=== PATIENT | female | born 1935 | race Caucasian/White ===

== ENCOUNTER 2019-07-16 15:03 | Inpatient (IN) ==
[2019-07-16] MEDS ORDERED: DILTIAZEM 25 MG/5 ML VIAL IV ONE (15:35)
[2019-07-16] MEDS ORDERED: DILTIAZEM 125 MG in DEXTROSE 5% IN WATER 100 ML IV SCH (15:45)
--- NOTE | 2019-07-16 16:02 | Emergency Department Note ---
Arrhythmia/Palpitations HPI - General Chief Complaint: Arrhythmia/Palpitations Stated Complaint: irregular heart rate, difficulty breathing Time Seen by Provider: 07/16/19 15:18 Source: patient Mode of arrival: ambulatory Limitations: no limitations - History of Present Illness HPI Narrative: 84-year-old female presents with tachycardia and palpitations. Onset yesterday afternoon. [place] about [place] she became short of breath and felt like she was having palpitations. Since then it has been intermittent but fairly constant all day today. States she is tried pounding on her chest with no relief as well as inhaler which gave her some minimal relief. No cough. No fever chills. No nausea, vomiting, or diarrhea. No chest pain. States she has a tight sensation all over her whole body but no pain. She was sent to the pulmonary clinic today to be evaluated for this and they sent her here to the ER for further evaluation. She arrives in A. fib in the 130s and is taken directly back to the ER room. - Related Data Home Medications Medication Instructions Recorded Confirmed HYDROcodone/APAP 5/325MG 1 tab PO PRN PRN 02/02/16 02/02/16 Ibuprofen [Motrin] 600 mg PO DAILY 02/02/16 02/02/16 Omeprazole [Prilosec] 20 mg PO DAILY 02/02/16 02/02/16 Verapamil [Calan Sr] 250 mg PO DAILY 02/02/16 02/02/16 glipiZIDE [Glucotrol] 10 mg PO DAILY 02/02/16 02/02/16 Prevagen Extra Strenght PO QDAY 01/16/18 01/16/18 glipizide 10 mg tablet 10 mg PO BID 01/16/18 01/16/18 insulin detemir U-100 SUB-Q 01/16/18 01/16/18 losartan 100 mg tablet 100 mg PO QDAY 01/16/18 01/16/18 verapamil ER 360 mg 24 hr 360 mg PO QDAY 01/16/18 01/16/18 capsule,extended release vit B complex-folic acid PO QDAY 01/16/18 01/16/18 Previous Rx's Medication Instructions Recorded diclofenac 1 % topical gel See Rx Instructions .ROUTE 01/18/18 .COMPLEX #100 g Allergies Allergy/AdvReac Type Severity Reaction Status Date / Time propoxyphene Allergy Verified 07/16/19 15:12 [From MohsenTorres] Review of Systems All systems ED: reviewed and negative except as stated. Past Medical History - Past Medical History [facility] Narrative: Medical History (Last Updated 01/16/18 @ 12:11 by Payton Diaz) Back pain (Acute) Osteoarthritis (Acute) Polyarthralgia (Acute) Vaginal prolapse (Chronic) Glaucoma (Chronic) Type 2 diabetes mellitus (Chronic) Essential hypertension (Chronic) Diverticular disease (Chronic) Memory deficit (Chronic) Rheumatoid arthritis (Chronic) Right radial head fracture (Acute) Contusion of right wrist (Acute) Contusion of right hip (Acute) Right knee pain (Acute) History of hysterectomy (Chronic) Past Surgical History (Last Updated 01/16/18 @ 12:11 by Payton Diaz) History of appendectomy (Chronic) History of cholecystectomy (Chronic) History of tonsillectomy and adenoidectomy (Chronic) Medical history: Reports: DM, GERD, glaucoma, hypertension, other Psychiatric history: Reports: anxiety, depression Surgical history ED: Reports: knee replacement, SURENDRA/BSO - Social History smoking status: Former smoker Alcohol use: Reports: None Drug use: Reports: none Physical Exam Limitations: no limitations General appearance: alert Head: atraumatic, normocephalic, normal inspection Eye: Present: normal appearance. Absent: conjunctival injection ENT: Present: mucous membranes moist Chest: Present: symmetric chest wall rise Respiratory: Present: normal lung sounds bilaterally. Absent: respiratory distress, rales/crackles, wheezes, stridor, accessory muscle use Cardiovascular: Present: tachycardia, irregular rhythm (A. fib in the 130s to 170s on arrival) Abdominal: Present: soft, normal bowel sounds. Absent: distention, tenderness, guarding, mass Extremities: Present: pedal edema (1+ bilaterally) Neurological: Present: alert, oriented X3 Psychiatric: Present: normal affect, normal mood Skin: Present: warm, dry, intact, normal color. Absent: rash Course Course Narrative: Patient was given a 10 mg IV bolus of Cardizem and started on a Cardizem drip this now titrated up to 8 and her rate is currently in the low 100s still A. fib. At 1738 I did speak with the hospitalist, Dr. Marcus who agrees to accept this patient. Vital Signs Temperature 97.5 F 07/16/19 15:06 Pulse Rate 133 H 07/16/19 15:06 Respiratory Rate 18 07/16/19 15:06 Pulse Oximetry (%) 96 07/16/19 15:06 Temperature 97.5 F 07/16/19 15:06 Pulse Rate 133 H 07/16/19 15:06 Respiratory Rate 17 07/16/19 17:31 Blood Pressure 142/74 07/16/19 17:31 Pulse Oximetry (%) 98 07/16/19 17:31 Arrhythmia/Palpitations - Lab Data Lab results reviewed: Yes I reviewed the patient's lab results. Result diagrams: 07/16/19 15:49 07/16/19 15:49 Lab Results 07/16/19 07/16/19 07/16/19 Range/Units 15:49 15:49 15:49 WBC 6.6 (4.5-11.0) K/mcL RBC 4.12 (4.00-5.20) M/mcL Hgb 11.8 L (12.0-15.0) g/dL Hct 35.6 L (36.0-48.0) % MCV 86.6 (80.0-100.0) fL MCH 28.7 (26.0-34.0) pg MCHC 33.2 (31.0-36.0) g/dL RDW 14.8 H (11.5-14.5) % Plt Count 182 (140-440) K/mcL MPV 7.8 (7.4-10.4) fL Gran % 63.5 (38.0-78.0) % Lymph % (Auto) 26.5 (15.5-49.0) % [place] % (Auto) 7.6 (1.0-12.0) % Eos % (Auto) 2.0 (0.0-7.0) % Baso % (Auto) 0.4 (0.0-2.0) % Gran # 4.2 (1.8-8.0) K/mcL Lymph # (Auto) 1.8 (1.5-4.8) K/mcL [place] # (Auto) 0.5 (0.1-0.9) K/mcL Eos # (Auto) 0.1 (0.0-0.7) K/mcL Baso # (Auto) 0 (0.0-0.3) K/mcL Sodium 138 (133-145) mmol/L Potassium 4.3 (3.3-5.1) mmol/L Chloride 106 (96-108) mmol/L Carbon Dioxide 16 L (22-30) mmol/L Anion Gap 16.0 (8-16) BUN 30 H (8-23) mg/dl Creatinine 1.4 H (0.6-1.1) mg/dl GFR Calculation 35 Glucose 128 H (70-105) mg/dL Calcium 9.0 (8.6-10.4) mg/dl Total Bilirubin 0.4 (0.0-1.0) mg/dL AST 31 (0-37) U/l ALT 32 (0-40) U/l Alkaline Phosphatase 70 (39-117) U/L CK-MB (CK-2) 1.6 (0-2.9) ng/ml Troponin T < 0.01 (0-0.03) ng/ml Total Protein 7.0 (5.9-8.4) gm/dL Albumin 4.1 (3.2-5.2) gm/dL Globulin 2.9 (2.2-3.7) gm/dL Albumin/Globulin Ratio 1.4 (1.0-2.3) - Radiology Data Radiology results reviewed: Yes I reviewed the patient's radiology results. Disposition Pt seen by APPIAN BPM DEVELOPER/PA only: Yes Clinical Impression: A-fib, Palpitations Disposition: Xfer As Inpt ([facility]) Condition: Fair Referrals: Nasra Lacy ARNP [Primary Care Provider] - Time of Disposition: 17:38
[2019-07-16 16:17] LABS: Basophils # (Auto) 0 K/mcL (0.0-0.3); Basophils % (Auto) 0.4 % (0.0-2.0); Eosinophils # (Auto) 0.1 K/mcL (0.0-0.7); Granulocytes % (Auto) 63.5 % (38.0-78.0); Hematocrit 35.6 % (36.0-48.0); Hemoglobin 11.8 g/dL (12.0-15.0); Lymphocytes # (Auto) 1.8 K/mcL (1.5-4.8); Lymphocytes % (Auto) 26.5 % (15.5-49.0); Mean Cell Volume 86.6 fL (80.0-100.0); Mean Corpuscular HGB Conc 33.2 g/dL (31.0-36.0); Mean Platelet Volume 7.8 fL (7.4-10.4); Monocytes # (Auto) 0.5 K/mcL (0.1-0.9); Monocytes % (Auto) 7.6 % (1.0-12.0); Platelet Count 182 K/mcL (140-440); RBC 4.12 M/mcL (4.00-5.20); Red Cell Distribution Width 14.8 % (11.5-14.5); WBC 6.6 K/mcL (4.5-11.0)
--- NOTE | 2019-07-16 16:19 | XRay Report ---
CLINICAL INFORMATION: palpitations COMPARISON: None. FINDINGS: The heart is borderline enlarged. Mediastinum and pulmonary vasculature are unremarkable. Moderate patchy infiltrates in both medial bases noted. No effusions IMPRESSION: Moderate patchy infiltrate in both medial bases - suspect aspiration Interpreted and Authenticated by: Christopher Parkinson 07/16/19
[2019-07-16 16:55] LABS: ALT/SGPT 32 U/l (0-40); AST/SGOT 31 U/l (0-37); Albumin 4.1 gm/dL (3.2-5.2); Albumin/Globulin Ratio 1.4 (1.0-2.3); Alkaline Phosphatase 70 U/L (39-117); Bilirubin,Total 0.4 mg/dL (0.0-1.0); Blood Urea Nitrogen 30 mg/dl (8-23); Carbon Dioxide 16 mmol/L (22-30); Chloride 106 mmol/L (96-108); Creatine Kinase MB 1.6 ng/ml (0-2.9); Globulin 2.9 gm/dL (2.2-3.7); Glomerular Filtration Rate 35; Glucose 128 mg/dL (70-105)
--- NOTE | 2019-07-16 17:52 | Internal Med History&Physical ---
Medical - H&P: [facility] Patient information: Note initiated : 07/16/19 at 5:48 pm Service Date, if different from initiated Date: [] Patient: Candy Sierra 84 y/o F admitted on for irregular heart rate, difficulty breathing. Chief Complaint: [] Chief complaint: Shortness of breath/chest palpitation History of present illness: Ms. Sierra is a 84 year old F with known history of diabetes/hypertension who presents to the ER with over 24-hour onset of chest palpitations/shortness of breath. Patient lives fairly independently at [place]. She went to the library where she started experiencing pounding sensation along with shortness of breath. She was helped by the reference librarian to her home. She could not get a hold of her kids in the evening and remained at home all night trying to work with the symptoms. This morning she woke up with similar symptoms and subsequently came to the ER for evaluation. She denies associated chest pain but felt like pressure. She denies associated diaphoresis lightheadedness or dizziness. Initial work-up was consistent with A. fib RVR with heart rate around 170. Patient was started on diltiazem with resultant heart rate stabilizing around 110. Chest imaging reveals bilateral basilar pneumonia, pyuria on UA. Subsequently hospitalist service was consulted. At the time of evaluation patient is alert and oriented. She was able to answer most questions. She was able to endorse history as above. Recently was on a vacation with her son at [facility]. She denies exposure to sick contact. She further denies [id number] cough suppressant or NSAIDs. She denies lower extremity pain swelling or prolonged immobilization or history of clotting or bleeding disorder. Review of systems 10 point review of system was performed and is negative except was discussed above Medical - H&P: PMH Medical history: Back pain (Acute) Osteoarthritis (Acute) Polyarthralgia (Acute) Vaginal prolapse (Chronic) Glaucoma (Chronic) Type 2 diabetes mellitus (Chronic) Essential hypertension (Chronic) Diverticular disease (Chronic) Memory deficit (Chronic) Rheumatoid arthritis (Chronic) Right radial head fracture (Acute) Contusion of right wrist (Acute) Contusion of right hip (Acute) Right knee pain (Acute) Surgical History History of appendectomy (Chronic) History of cholecystectomy (Chronic) History of hysterectomy (Chronic) History of tonsillectomy and adenoidectomy (Chronic) Family History Brother Coronary heart disease Social History marital status: occupational status: retired smoking status: Former smoker alcohol intake frequency: does not drink substance use type: does not use Medical - H&P: Meds Home Medications Medication Instructions Recorded Confirmed Type HYDROcodone/APAP 5/325MG 1 tab PO PRN PRN 02/02/16 02/02/16 History Ibuprofen [Motrin] 600 mg PO DAILY 02/02/16 02/02/16 History Omeprazole [Prilosec] 20 mg PO DAILY 02/02/16 02/02/16 History Verapamil [Calan Sr] 250 mg PO DAILY 02/02/16 02/02/16 History glipiZIDE [Glucotrol] 10 mg PO DAILY 02/02/16 02/02/16 History Prevagen Extra Strenght PO QDAY 01/16/18 01/16/18 History glipizide 10 mg tablet 10 mg PO BID 01/16/18 01/16/18 History insulin detemir U-100 SUB-Q 01/16/18 01/16/18 History losartan 100 mg tablet 100 mg PO QDAY 01/16/18 01/16/18 History verapamil ER 360 mg 24 hr 360 mg PO QDAY 01/16/18 01/16/18 History capsule,extended release vit B complex-folic acid PO QDAY 01/16/18 01/16/18 History diclofenac 1 % topical gel See Rx Instructions .ROUTE 01/18/18 01/18/18 Rx .COMPLEX #100 g Aspirin [Adult Low Dose Aspirin EC] 81 mg PO 07/16/19 History B-Complex with Vit C Caplet 1 tab PO DAILY 07/16/19 07/16/19 History Baby Vitamin D3 400 units PO DAILY 07/16/19 07/16/19 History Citracal + D Maximum Caplet 1 tab PO DAILY 07/16/19 07/16/19 History Lantus Solostar 15 units SQ DAILY 07/16/19 07/16/19 History Latanoprost 0.005% Eye Drop 1 gtt OU DAILY 07/16/19 07/16/19 History Omeprazole [PriLOSEC] 20 mg PO ACB 07/16/19 07/16/19 History Timolol 0.5% Ophth Drops 1 gtt OU BID 09/04/19 09/04/19 History amLODIPine [Norvasc] 5 mg PO DAILY 07/16/19 07/16/19 History Allergies Allergy/AdvReac Type Severity Reaction Status Date / Time propoxyphene Allergy Verified 07/16/19 15:12 [From RosalineTorres] Medical - H&P: Exam - Constitutional Vitals: Temp Pulse Resp BP Pulse Ox 97.5 F 133 H 17 142/74 98 07/16/19 15:06 07/16/19 15:06 07/16/19 17:31 07/16/19 17:31 07/16/19 17:31 General appearance: no acute distress Exam: Patient alert and oriented Head normocephalic Oral cavity dry No ear nose discharge Neck lymphadenopathy Eye movement symmetrical S1-S2 irregular rhythm grade 1 ESM Diminished breath sounds bases Abdomen soft nontender pendulous Lower extremity no cyanosis clubbing no joint swelling Skin no suspicious lesion Psych alert cooperative Neuro nonfocal Medical - H&P: Reslt - Labs CBC & Chem 7: 07/16/19 15:49 07/16/19 15:49 Labs: Short CBC 07/16/19 Range/Units 15:49 WBC 6.6 (4.5-11.0) K/mcL Hgb 11.8 L (12.0-15.0) g/dL Hct 35.6 L (36.0-48.0) % Plt Count 182 (140-440) K/mcL BMP 07/16/19 15:49 Sodium 138 Potassium 4.3 Chloride 106 Carbon Dioxide 16 L BUN 30 H Creatinine 1.4 H Glucose 128 H Calcium 9.0 Cardiac Enzymes 07/16/19 07/16/19 Range/Units 15:49 15:49 CK-MB (CK-2) 1.6 (0-2.9) ng/ml Troponin T < 0.01 (0-0.03) ng/ml Liver Function 07/16/19 Range/Units 15:49 Total Bilirubin 0.4 (0.0-1.0) mg/dL AST 31 (0-37) U/l ALT 32 (0-40) U/l Alkaline Phosphatase 70 (39-117) U/L Albumin 4.1 (3.2-5.2) gm/dL Medical - H&P: A/P (1) Atrial fibrillation with RVR Current visit: Yes Status: Acute * A. fib with RVR -new onset with active symptoms. Unclear precipitant. Echocardiogram/diltiazem drip/switch to oral AV daisy blockers. Start full dose anticoagulation. If does not spontaneously convert will attempt cardioversion. Rule out DVT with lower extremity Doppler * Bilateral basilar pneumonia-likely aspiration. Continue Zosyn, cultures. Aspiration precautions/ST eval * Acute cystitis-antibiotic coverage and de-escalate based on cultures * DM type II continue basal prandial insulin * Hypertension continue ARB/verapamil * GERD continue PPI * DNR * Prophylaxis full dose anticoagulation in anticipation of cardioversion Plan * Inpatient telemetry admit * Rate control measures * Echocardiogram * Lower extremity Doppler to rule out DVT * Full dose anticoagulation * Cardioversion if no spontaneous reversion to sinus * Prior medical condition management home meds
[2019-07-16 18:16] LABS: Appearance,Urine CLEAR; Bacteria,Urine FEW /hpf (0); Bilirubin,Urine NEG (NEG); Color,Urine YELLOW; Culture Indicated,Urine YES; Glucose,Urine (UA) NEGATIVE (NEG); Ketones,Urine NEG (NEG); Leukocyte Esterase,Urine 250 /uL (NEG); Mucus,Urine FEW /hpf (0); Nitrate,Urine NEG (NEG); Protein,Urine NEG (NEG); Specific Gravity,Urine 1.011 (1.000-1.035); Urine Blood NEG mg/dL (<0.03); Urine Hyaline Cast 6 /lpf (0-2); Urine RBC 0 /hpf (0-1); Urine Squamous Epithelial Cell 1 /hpf (0-4); Urine Transitional Epi Cells < 1 /hpf (0-2); Urine WBC 40 /hpf (0-4); Urobilinogen,Urine NEG (NEG)
[2019-07-16] MEDS ORDERED: MAGNESIUM SULFATE 2 GM/50 ML BAG IV PRN (19:05)
[2019-07-16] MEDS ORDERED: MAGNESIUM HYDROXIDE 30 ML ORAL.SUSP PO PRN (19:05)
[2019-07-16] MEDS ORDERED: POTASSIUM CHLORIDE 20 MEQ PACKET PO PRN (19:05)
[2019-07-16] MEDS ORDERED: DEXTROSE 50% 50 ML VIAL IV PRN (19:05)
[2019-07-16] MEDS ORDERED: ACETAMINOPHEN 1,000 MG/100 ML BOTTLE IV PRN (19:05)
[2019-07-16] MEDS ORDERED: DEXTROSE 31 GM ORAL.SUSP PO PRN (19:05)
[2019-07-16] MEDS ORDERED: ENOXAPARIN 80 MG/0.8 ML SYRINGE SQ ONE (19:05)
[2019-07-16] MEDS: METOPROLOL TARTRATE 5 MG/5 ML VIAL IV SCH ×3 (19:55→20:05)
[2019-07-16] MEDS: PIPERACILLIN SODIUM/TAZOBACTAM 3.375 GM in DEXTROSE 5% IN WATER 50 ML IV SCH (19:56)
[2019-07-16] MEDS: SENNOSIDES/DOCUSATE SODIUM 1 TAB TABLET PO SCH (21:47)
[2019-07-16] MEDS: DOCUSATE SODIUM 100 MG CAPSULE PO SCH (21:47)
[2019-07-16] MEDS: 0.9 % SODIUM CHLORIDE 10 ML SYRINGE IV SCH (21:52)
[2019-07-16] MEDS: INSULIN LISPRO 1 UNIT/0.01 ML UNIT SQ SCH (21:52)
[2019-07-16] MEDS: ACETAMINOPHEN 325 MG TABLET PO PRN (21:54)
[2019-07-17] MEDS: PIPERACILLIN SODIUM/TAZOBACTAM 3.375 GM in DEXTROSE 5% IN WATER 50 ML IV SCH ×5 (00:06→23:41)
[2019-07-17] MEDS: MELATONIN 3 MG TABLET PO PRN ×2 (00:36→20:36)
--- NOTE | 2019-07-17 02:57 | Ultrasound Report ---
CLINICAL INFORMATION: Bilateral leg pain COMPARISON: None. FINDINGS: The entire deep venous system of both lower extremities, including the common femoral, superficial femoral, popliteal and paired trifurcation calf veins are easily compressible and show normal venous blood flow on color and spectral Doppler. No evidence of thrombus IMPRESSION: Negative exam - no evidence of deep vein thrombosis in either lower extremity. Interpreted and Authenticated by: Christopher Parkinson 07/17/19
[2019-07-17] MEDS: DILTIAZEM 125 MG in DEXTROSE 5% IN WATER 100 ML IV SCH ×2 (03:44→15:27)
[2019-07-17 05:26] LABS: Hematocrit 32.3 % (36.0-48.0); Hemoglobin 10.9 g/dL (12.0-15.0); Mean Cell Volume 86.7 fL (80.0-100.0); Mean Corpuscular HGB Conc 33.9 g/dL (31.0-36.0); Mean Platelet Volume 8.3 fL (7.4-10.4); Platelet Count 141 K/mcL (140-440); RBC 3.73 M/mcL (4.00-5.20); Red Cell Distribution Width 14.8 % (11.5-14.5); WBC 5.3 K/mcL (4.5-11.0)
[2019-07-17 05:42] LABS: ALT/SGPT 26 U/l (0-40); AST/SGOT 21 U/l (0-37); Albumin 3.7 gm/dL (3.2-5.2); Albumin/Globulin Ratio 1.5 (1.0-2.3); Alkaline Phosphatase 62 U/L (39-117); Bilirubin,Direct < 0.2 mg/dL (0.0-0.3); Bilirubin,Total 0.3 mg/dL (0.0-1.0); Blood Urea Nitrogen 31 mg/dl (8-23); Calcium 8.7 mg/dl (8.6-10.4); Carbon Dioxide 19 mmol/L (22-30); Chloride 106 mmol/L (96-108); Globulin 2.5 gm/dL (2.2-3.7); Glomerular Filtration Rate 30; Glucose 128 mg/dL (70-105); Lactate Dehydrogenase 243 U/L (94-250); Phosphorous 4.1 mg/dL (2.7-4.5); Triglycerides 95 mg/dl (<150); Uric Acid 8.7 mg/dL (2.5-8.0)
[2019-07-17] MEDS: 0.9 % SODIUM CHLORIDE 10 ML SYRINGE IV SCH ×3 (06:02→21:58)
[2019-07-17 08:05] LABS: Band Neutrophils % 2 % (0-10); Basophils % (Manual) 1 % (0-2); Lymphocytes % 30 % (15-49); Monocytes % (Manual) 8 % (1-12); Platelet Estimate NORMAL (NORMAL); RBC Morphology NORMAL (NORMAL); Reactive Lymphocytes 1 % (0-2); Segmented Neutrophils % 58 % (38-78)
[2019-07-17] MEDS: INSULIN LISPRO 1 UNIT/0.01 ML UNIT SQ SCH ×4 (08:10→21:57)
[2019-07-17] MEDS: ENOXAPARIN 80 MG/0.8 ML SYRINGE SQ SCH ×2 (08:18→20:36)
[2019-07-17] MEDS: MULTIVIT,THER IRON,CA,FA & MIN 1 TABLET PO SCH ×2 (08:19→08:48)
[2019-07-17] MEDS: DOCUSATE SODIUM 100 MG CAPSULE PO SCH ×3 (08:19→21:54)
--- NOTE | 2019-07-17 11:16 | Internal Med Progress Note ---
Medical - PN: Subj Patient information: Note initiated : 07/17/19 at 11:13 am Service Date, if different from initiated Date: [] Patient: Candy Sierra a 84 y/o F admitted on 07/16/19 for irregular heart rate, difficulty breathing. Chief Complaint: [] Interval history: Ms. Sierra is a 84 year old F with known history of diabetes/hypertension who presents to the ER with over 24-hour onset of chest palpitations/shortness of breath. Patient lives fairly independently at [place]. She went to the library where she started experiencing pounding sensation along with shortness of breath. She was helped by the elementary librarian to her home. She could not get a hold of her kids in the evening and remained at home all night trying to work with the symptoms. This morning she woke up with similar symptoms and subsequently c melvi to the ER for evaluation. She denies associated chest pain but felt like pressure. She denies associated diaphoresis lightheadedness or dizziness. Initial work-up was consistent with A. fib RVR with heart rate around 170. Patient was started on diltiazem with resultant heart rate stabilizing around 110. Chest imaging reveals bilateral basilar pneumonia, pyuria on UA. Subsequently hospitalist service was consulted. At the time of evaluation patient is alert and oriented. She was able to answer most questions. She was able to endorse history as above. Recently was on a vacation with her son at [facility]. She denies exposure to sick contact. She further denies [id number] cough suppressant or NSAIDs. She denies lower extremity pain swelling or prolonged immobilization or history of clotting or bleeding disorder. 07/17-patient doing well. No overnight events. Intermittent A. fib RVR currently on diltiazem drip. On review patient is not on verapamil as per pharmacy. She is currently only on losartan. Start verapamil at home dose titrate diltiazem drip. Continue full dose anticoagulation on Lovenox. Await echocardiogram. Patient will be a candidate for novel oral anticoagulants if nonvalvular A. fib. Creatinine 1.6. Pyuria. Check urine culture. Consider antibiotic if fever or flank pain noted. Patient may be a candidate for cardioversion if unable to convert spontaneously in the next 30 days due to symptomatic A. fib - Constitutional Vitals: Vital Signs Temp Pulse Resp BP Pulse Ox 98.0 F 96 H 16 150/87 98 07/17/19 08:00 07/17/19 08:00 07/17/19 08:00 07/17/19 08:00 07/17/19 08:00 Period Temp Pulse Resp BP Sys/Kaminski Pulse Ox Last 24 Hr 97.5 F-98.8 F 49-133 16-24 110-165/44-152 94-98 Intake and Output 07/16/19 07/17/19 07/17/19 21:59 05:59 13:59 Intake Total 69 326 600 Output Total 150 700 350 Balance -81 -374 250 Weight 187 lb 9.6 oz Intake & Output: Intake & Output 07/16/19 07/17/19 07/17/19 21:59 05:59 13:59 Intake Total 69 326 600 Output Total 150 700 350 Balance -81 -374 250 Weight 187 lb 9.6 oz Intake: IV 69 86 Cardizem 125 mg In Dextrose 5% 19 in Water 100 ml @ 5 MG/HR 5 mls /hr IV Q12H [facility] Rx#:[id number] Zosyn 3.375 gm In Dextrose 5% 50 50 in Water 50 ml @ 100 mls/hr IV Q6H [facility] Rx#:[id number] Oral 240 600 Output: Void Amount 150 700 350 Other: Meal Dinner Breakfast Percent of Meal Consumed 100% 100% Feeding Ability Assist with Tray Set Up Urine Appearance Clear Clear Clear Urine Color Bright Yellow Bright Yellow Bright Yellow Stool Size Small Stool Color Brown Stool Consistency Soft # Bowel Movements 1 General appearance: no acute distress Exam: A. fib with intermittent RVR Nonlabored breathing Diminished breath sounds bases Abdomen soft No anxiety Medical - PN: Obj Da - Labs CBC & Chem 7: 07/17/19 03:30 07/17/19 03:30 Labs: Abnormal Lab Results 07/17/19 07/17/19 07/16/19 03:30 03:30 17:15 RBC 3.73 L Hgb 10.9 L Hct 32.3 L RDW 14.8 H Carbon Dioxide 19 L BUN 31 H Creatinine 1.6 H Glucose 128 H Uric Acid 8.7 H Ur Leukocyte Esterase 250 A Urine WBC 40 H Urine Bacteria Few A Hyaline Casts 6 H 07/16/19 07/16/19 15:49 15:49 RBC Hgb 11.8 L Hct 35.6 L RDW 14.8 H Carbon Dioxide 16 L BUN 30 H Creatinine 1.4 H Glucose 128 H Uric Acid Ur Leukocyte Esterase Urine WBC Urine Bacteria Hyaline Casts Meds: Medications Acetaminophen (Tylenol) 650 mg PO Q4-6HP PRN PRN Reason: PAIN/FEVER > 101 Last Admin: 07/16/19 21:54 Dose: 650 mg Documented by: Dextrose (Dextrose 50%) 0 ml IV UD PRN PRN Reason: Hypoglycemia Diagnostic Test (Pha) (Accu-Chek) 1 each FS [facility] Last Admin: 07/17/19 08:06 Dose: 1 each Documented by: Docusate Sodium (Colace) 100 mg PO BID [facility] Last Admin: 07/17/19 08:22 Dose: Not Given Documented by: Enoxaparin Sodium (Lovenox) 80 mg SQ BID [facility] Last Admin: 07/17/19 08:18 Dose: 80 mg Documented by: Glucose (Insta-Glucose) 15 gm PO PRN PRN PRN Reason: Hypoglycemia Diltiazem HCl 125 mg/ Dextrose 125 mls @ 5 mls/hr IV Q12H [facility]; Protocol Last Admin: 07/17/19 03:44 Dose: Not Given Documented by: Magnesium Sulfate (Magnesium Sulfate) 2 gm in 50 mls @ 50 mls/hr IV UD PRN PRN Reason: MG = or < 1.7 Acetaminophen (Ofirmev) 1,000 mg in 100 mls @ 200 mls/hr IV Q6HP PRN PRN Reason: PAIN/FEVER > 101 Piperacillin Sod/Tazobactam (Sod 3.375 gm/ Dextrose) 50 mls @ 100 mls/hr IV Q6H [facility]; Protocol Last Admin: 07/17/19 06:02 Dose: 100 mls/hr Documented by: Insulin Human Lispro (Humalog) 0 unit SQ [facility]; Protocol Last Admin: 07/17/19 08:10 Dose: Not Given Documented by: Iron Carb/Multivit/Owen/Folic Acid (Multivitamin W/Minerals) 1 tab PO DAILY [facility] Last Admin: 07/17/19 08:48 Dose: Not Given Documented by: Magnesium Hydroxide (Milk Of Magnesia) 30 ml PO HSP PRN PRN Reason: Constipation Melatonin (Melatonin 3mg Tablet) 3 mg PO HSP PRN PRN Reason: Insomnia Last Admin: 07/17/19 00:36 Dose: 3 mg Documented by: Ondansetron HCl (Zofran) 4 mg IV Q4-6HP PRN PRN Reason: Nausea And Vomiting Potassium Chloride (Klor-Con) 40 meq PO DAILYP PRN PRN Reason: K+ < 3.5 Senna/Docusate Sodium (Senna Plus Tablet) 1 tab PO HS [facility] Last Admin: 07/16/19 21:47 Dose: Not Given Documented by: Sodium Chloride (Saline Flush) 10 ml IV Q8 [facility] Last Admin: 07/17/19 06:02 Dose: 10 ml Documented by: Verapamil HCl (Calan Sr) 360 mg PO DAILY [facility] Medical - PN: A/P - Time Spent With Patient Total time spent is greater than 50% in coordination of care (as documented) at patient's floor/unit and/or counseling patient: 25 - 35 minutes (1) Atrial fibrillation with RVR Status: Acute Assessment and plan: * A. fib with RVR -unclear if new onset of paroxysmal. No clear precipitant. Possibly secondary to suboptimally controlled hypertension. Await echocardiogram. Discussed options for oral anticoagulants for stroke prophy laxis. Patient agreeable. Will initiate post echocardiogram results. Lower extremity Doppler negative for DVT. Chads vasc score mandates anticoagulation * Bilateral basilar pneumonia-likely aspiration. ST eval today. Continue Zosyn, cultures. Aspiration precautions * Acute cystitis-await cultures * DM type II continue basal prandial insulin * Hypertension continue ARB/verapamil * GERD continue PPI * DNR * Prophylaxis full dose anticoagulation in anticipation of cardioversion Plan * Rate control measures, start verapamil * Await echocardiogram results * Discussed oral anticoagulants for CVA prophylaxis * Prior medical condition management home meds Current Visit: Yes
[2019-07-17] MEDS: VERAPAMIL 180 MG TAB.XL.24H PO SCH (11:56)
[2019-07-17] MEDS: ACETAMINOPHEN 325 MG TABLET PO PRN (14:20)
[2019-07-17] MEDS: ONDANSETRON 4 MG/2 ML VIAL IV PRN (16:22)
[2019-07-17] MEDS: SENNOSIDES/DOCUSATE SODIUM 1 TAB TABLET PO SCH (21:54)
[2019-07-18] MEDS: DILTIAZEM 125 MG in DEXTROSE 5% IN WATER 100 ML IV SCH (05:33)
[2019-07-18] MEDS: 0.9 % SODIUM CHLORIDE 10 ML SYRINGE IV SCH ×3 (05:35→21:00)
[2019-07-18] MEDS: PIPERACILLIN SODIUM/TAZOBACTAM 3.375 GM in DEXTROSE 5% IN WATER 50 ML IV SCH (05:35)
[2019-07-18 05:50] LABS: Hematocrit 32.1 % (36.0-48.0); Hemoglobin 10.6 g/dL (12.0-15.0); Mean Cell Volume 87.7 fL (80.0-100.0); Mean Platelet Volume 8.4 fL (7.4-10.4); Platelet Count 142 K/mcL (140-440); RBC 3.66 M/mcL (4.00-5.20); WBC 4.6 K/mcL (4.5-11.0)
[2019-07-18 06:13] LABS: ALT/SGPT 31 U/l (0-40); AST/SGOT 25 U/l (0-37); Albumin 3.6 gm/dL (3.2-5.2); Albumin/Globulin Ratio 1.4 (1.0-2.3); Alkaline Phosphatase 55 U/L (39-117); Bilirubin,Direct < 0.2 mg/dL (0.0-0.3); Bilirubin,Total 0.3 mg/dL (0.0-1.0); Blood Urea Nitrogen 39 mg/dl (8-23); Calcium 8.7 mg/dl (8.6-10.4); Carbon Dioxide 17 mmol/L (22-30); Chloride 104 mmol/L (96-108); Globulin 2.5 gm/dL (2.2-3.7); Glomerular Filtration Rate 20; Glucose 108 mg/dL (70-105); Lactate Dehydrogenase 215 U/L (94-250); Phosphorous 5.4 mg/dL (2.7-4.5); Triglycerides 73 mg/dl (<150); Uric Acid 8.2 mg/dL (2.5-8.0)
--- NOTE | 2019-07-18 06:42 | XRay Report ---
CLINICAL INFORMATION: Follow-up bibasilar infiltrate COMPARISON: 07/16/2019 FINDINGS: Heart size, mediastinum and pulmonary vessels are normal. Bibasilar infiltrate has almost cleared with minimal residual. No effusion IMPRESSION: Near complete clearance of bibasilar infiltrate/atelectasis Interpreted and Authenticated by: Christopher Parkinson 07/18/19
[2019-07-18] MEDS ORDERED: DILTIAZEM 125 MG in DEXTROSE 5% IN WATER 100 ML IV PRN (07:15)
[2019-07-18] MEDS: INSULIN LISPRO 1 UNIT/0.01 ML UNIT SQ SCH ×4 (08:03→21:00)
[2019-07-18] MEDS: DOCUSATE SODIUM 100 MG CAPSULE PO SCH ×2 (08:04→21:00)
[2019-07-18 08:43] LABS: Eosinophils % (Manual) 4 % (0-7); Lymphocytes % 33 % (15-49); Monocytes % (Manual) 11 % (1-12); Platelet Estimate NORMAL (NORMAL); RBC Morphology NORMAL (NORMAL); Segmented Neutrophils % 52 % (38-78)
[2019-07-18] MEDS: ENOXAPARIN 80 MG/0.8 ML SYRINGE SQ SCH (09:37)
[2019-07-18] MEDS: MULTIVIT,THER IRON,CA,FA & MIN 1 TABLET PO SCH (09:37)
[2019-07-18] MEDS: VERAPAMIL 180 MG TAB.XL.24H PO SCH (09:37)
--- NOTE | 2019-07-18 09:52 | Internal Med Progress Note ---
Medical - PN: Subj Patient information: Note initiated : 07/18/19 at 9:45 am Service Date, if different from initiated Date: [] Patient: Candy Sierra a 84 y/o F admitted on 07/16/19 for irregular heart rate, difficulty breathing. Chief Complaint: [] Interval history: Ms. Sierra is a 84 year old F with known history of diabetes/hypertension who presents to the ER with over 24-hour onset of chest palpitations/shortness of breath. Patient lives fairly independently at [place]. She went to the library where she started experiencing pounding sensation along with shortness of breath. She was helped by the children librarian to her home. She could not get a hold of her kids in the evening and remained at home all night trying to work with the symptoms. This morning she woke up with similar symptoms and subsequently came to the ER for evaluation. She denies associated chest pain but felt like pressure. She denies associated diaphoresis lightheadedness or dizziness. Initial work-up was consistent with A. fib RVR with heart rate around 170. Patient was started on diltiazem with resultant heart rate stabilizing around 110. Chest imaging reveals bilateral basilar pneumonia, pyuria on UA. Subsequently hospitalist service was consulted. At the time of evaluation patient is alert and oriented. She was able to answer most questions. She was able to endorse history as above. Recently was on a vacation with her son at [facility]. She denies exposure to sick contact. She further denies [id number] cough suppressant or NSAIDs. She denies lower extremity pain swelling or prolonged immobilization or history of clotting or bleeding disorder. 07/17-patient doing well. No overnight events. Intermittent A. fib RVR currently on diltiazem drip. On review patient is not on verapamil as per pharmacy. She is currently only on losartan. Start verapamil at home dose titrate diltiazem drip. Continue full dose anticoagulation on Lovenox. Await echocardiogram. Patient will be a candidate for novel oral anticoagulants if nonvalvular A. fib. Creatinine 1.6. Pyuria. Check urine culture. Consider antibiotic if fever or flank pain noted. Patient may be a candidate for cardioversion if unable to convert spontaneously in the next 30 days due to symptomatic A. fib 07/18-patient doing well on p.o. verapamil. Echo 65% EF with mild stenosis and regurgitation. Started on Coumadin for CVA prophylaxis after discussion of risk and benefits with patient. Diuresing well. Improved shortness of breath. Heart rate study around 90s. Creatinine bump noted from a baseline of and 2007-2.2. Nephrology consulted. No nephrotoxins on medication list. Zosyn discontinued for concerns of interstitial nephritis. - Constitutional Vitals: Vital Signs Temp Pulse Resp BP Pulse Ox 97.0 F 55 L 17 144/91 98 07/18/19 08:19 07/17/19 20:00 07/18/19 08:19 07/18/19 08:19 07/18/19 08:19 Period Temp Pulse Resp BP Sys/Kaminski Pulse Ox Last 24 Hr 97.0 F-98.4 F 55-123 12-20 102-144/62-91 97-99 Intake and Output 07/17/19 07/18/19 07/18/19 21:59 05:59 13:59 Intake Total 170 350 410 Output Total 125 200 50 Balance 45 150 360 Weight 194 lb 2 oz Intake & Output: Intake & Output 07/17/19 07/18/19 07/18/19 21:59 05:59 13:59 Intake Total 170 350 410 Output Total 125 200 50 Balance 45 150 360 Weight 194 lb 2 oz Intake: IV 50 50 50 Zosyn 3.375 gm In Dextrose 5% 50 50 50 in Water 50 ml @ 100 mls/hr IV Q6H [facility] Rx#:[id number] Oral 120 300 360 Output: Urine Catheter Amount 150 Void Amount 125 50 50 Other: Meal Dinner Breakfast Percent of Meal Consumed 50% 100% Feeding Ability Independent Independent Urine Appearance Clear Clear Clear Urine Color Bright Yellow Dark Yellow Bright Yellow Urine Odor Strong Stool Size Copious Small Moderate Stool Color Brown Brown Brown Stool Consistency Loose Loose Soft Formed # Voids 1 1 # Bowel Movements 1 1 1 # of times incontinent of 1 Bowels General appearance: no acute distress Exam: Unlabored breathing on room air Heart rate mid 70s to 90s Alert oriented no anxiety No lymphedema Medical - PN: Obj Da - Labs CBC & Chem 7: 07/18/19 03:38 07/18/19 03:38 Labs: Abnormal Lab Results 07/18/19 07/18/19 07/17/19 03:38 03:38 03:30 RBC 3.66 L Hgb 10.6 L Hct 32.1 L RDW 15.0 H Carbon Dioxide 17 L 19 L BUN 39 H 31 H Creatinine 2.2 H 1.6 H Glucose 108 H 128 H Uric Acid 8.2 H 8.7 H Phosphorus 5.4 H Ur Leukocyte Esterase Urine WBC Urine Bacteria Hyaline Casts 07/17/19 07/16/19 07/16/19 03:30 17:15 15:49 RBC 3.73 L Hgb 10.9 L Hct 32.3 L RDW 14.8 H Carbon Dioxide 16 L BUN 30 H Creatinine 1.4 H Glucose 128 H Uric Acid Phosphorus Ur Leukocyte Esterase 250 A Urine WBC 40 H Urine Bacteria Few A Hyaline Casts 6 H 07/16/19 15:49 RBC Hgb 11.8 L Hct 35.6 L RDW 14.8 H Carbon Dioxide BUN Creatinine Glucose Uric Acid Phosphorus Ur Leukocyte Esterase Urine WBC Urine Bacteria Hyaline Casts Meds: Medications Acetaminophen (Tylenol) 650 mg PO Q4-6HP PRN PRN Reason: PAIN/FEVER > 101 Last Admin: 07/17/19 14:20 Dose: 650 mg Documented by: Dextrose (Dextrose 50%) 0 ml IV UD PRN PRN Reason: Hypoglycemia Diagnostic Test (Pha) (Accu-Chek) 1 each FS ACHS [facility] Last Admin: 07/18/19 08:01 Dose: 1 each Documented by: Docusate Sodium (Colace) 100 mg PO BID [facility] Last Admin: 07/18/19 08:04 Dose: Not Given Documented by: Enoxaparin Sodium (Lovenox) 80 mg SQ BID [facility] Last Admin: 07/18/19 09:37 Dose: 80 mg Documented by: Glucose (Insta-Glucose) 15 gm PO PRN PRN PRN Reason: Hypoglycemia Magnesium Sulfate (Magnesium Sulfate) 2 gm in 50 mls @ 50 mls/hr IV UD PRN PRN Reason: MG = or < 1.7 Acetaminophen (Ofirmev) 1,000 mg in 100 mls @ 200 mls/hr IV Q6HP PRN PRN Reason: PAIN/FEVER > 101 Piperacillin Sod/Tazobactam (Sod 2.25 gm/ Dextrose) 50 mls @ 100 mls/hr IV Q6H [facility]; Protocol Diltiazem HCl 125 mg/ Dextrose 125 mls @ 5 mls/hr IV Q12HP PRN; Protocol PRN Reason: Tachyarrhythmias Insulin Human Lispro (Humalog) 0 unit SQ ACHS [facility]; Protocol Last Admin: 07/18/19 08:03 Dose: Not Given Documented by: Iron Carb/Multivit/Glades/Folic Acid (Multivitamin W/Minerals) 1 tab PO DAILY [facility] Last Admin: 07/18/19 09:37 Dose: 1 tab Documented by: Magnesium Hydroxide (Milk Of Magnesia) 30 ml PO HSP PRN PRN Reason: Constipation Melatonin (Melatonin 3mg Tablet) 3 mg PO HSP PRN PRN Reason: Insomnia Last Admin: 07/17/19 20:36 Dose: 3 mg Documented by: Ondansetron HCl (Zofran) 4 mg IV Q4-6HP PRN PRN Reason: Nausea And Vomiting Last Admin: 07/17/19 16:22 Dose: 4 mg Documented by: Potassium Chloride (Klor-Con) 40 meq PO DAILYP PRN PRN Reason: K+ < 3.5 Senna/Docusate Sodium (Senna Plus Tablet) 1 tab PO HS [facility] Last Admin: 07/17/19 21:54 Dose: Not Given Documented by: Sodium Chloride (Saline Flush) 10 ml IV Q8 [facility] Last Admin: 07/18/19 05:35 Dose: 10 ml Documented by: Verapamil HCl (Calan Sr) 360 mg PO DAILY [facility] Last Admin: 07/18/19 09:37 Dose: 360 mg Documented by: Medical - PN: A/P - Time Spent With Patient Total time spent is greater than 50% in coordination of care (as documented) at patient's floor/unit and/or counseling patient: 25 - 35 minutes (1) Atrial fibrillation with RVR Status: Acute Assessment and plan: * A. fib with RVR -unclear if new onset of paroxysmal. Possibly secondary to suboptimally controlled hypertension/MS MR. Echocardiogram EF 65% with MR/MS . Discussed options for oral anticoagulants for stroke prophylaxis. Started on Coumadin based on Chads vasc score. * Acute kidney injury-nephrology consulted. DC'd Zosyn. Check UA/renal ultrasound. * Bilateral basilar pneumonia-likely chemical aspiration. No aspiration risk * Acute cystitis- resolved * DM type II continue basal prandial insulin * Hypertension continue ARB/verapamil * GERD continue PPI * DNR * Prophylaxis full dose anticoagulation in anticipation of cardioversion Plan * Rate control on verapamil * UA, US kidney * DC Zosyn * Renal consult * coumadin dosing * Prior medical condition management home meds Current Visit: Yes
[2019-07-18] MEDS: ACETAMINOPHEN 325 MG TABLET PO PRN ×2 (10:11→19:32)
[2019-07-18 11:26] LABS: INR 1.3 (0.9-1.1); Prothrombin Time 15.8 sec (11.9-14.5)
[2019-07-18 11:48] LABS: Appearance,Urine HAZY; Bacteria,Urine FEW /hpf (0); Bilirubin,Urine NEG (NEG); Color,Urine YELLOW; Culture Indicated,Urine NO; Glucose,Urine (UA) NEGATIVE (NEG); Ketones,Urine NEG (NEG); Leukocyte Esterase,Urine 250 /uL (NEG); Nitrate,Urine NEG (NEG); Protein,Urine 30 mg/dL (NEG); Specific Gravity,Urine 1.021 (1.000-1.035); Urine Blood TRACE ery/mcL (<5); Urine RBC 11 /hpf (0-1); Urine Squamous Epithelial Cell 2 /hpf (0-4); Urine Transitional Epi Cells 2 /hpf (0-2); Urine WBC 18 /hpf (0-4); Urobilinogen,Urine NEG (NEG)
[2019-07-18] MEDS ORDERED: PIPERACILLIN SODIUM/TAZOBACTAM 2.25 GM in DEXTROSE 5% IN WATER 50 ML IV SCH (12:00)
--- NOTE | 2019-07-18 12:36 | Ultrasound Report ---
CLINICAL INFORMATION: enoch COMPARISON: 09/11/2009 FINDINGS: Both kidneys are normal in size, position, configuration and echotexture: The right is 11 x 5 cm and the left 11 x 4.8 cm. No focal renal lesions, stone or hydronephrosis. Arterial blood flow is grossly normal to both kidneys with color Doppler. Urinary bladder volume is 255 cc with a 236 cc post void residual. No focal bladder lesions IMPRESSION: Both kidneys are unremarkable. Large postvoid residual - bladder otherwise normal Interpreted and Authenticated by: Christopher Parkinson 07/18/19
--- NOTE | 2019-07-18 13:47 | Nephrology Consult Note ---
History of Present Illness - Reason for Consult Patient information: Note initiated : 07/18/19 at 1:45 pm Service Date, if different from initiated Date: [] Patient: Candy Sierra 84 y/o F admitted on 07/16/19 for irregular heart rate, difficulty breathing. Chief Complaint: [] Consult date: 07/18/19 acute renal failure (In the setting of afib with RVR with pre-existing DM, HTN and chronic Afib) Requesting physician: Adrian Montes - Chief Complaint Fast heart beat and shortness of breath - History of Present Illness This is an 84 yr old patient with multiple medical problems including HTN, DM and baseline SCr 1.0-1.2 mg/dl. (GFR 50cc/min). She used OTC NSAIDs for DJD occasionally. Until April or so she was on Verapamil and losartan for HTN. The insurance had the patient switch from verapamil to amlodipine and continue on losartan. About a week [employer] she developed palpatations and SOB going up 5 stairs to the scrible. This recurred off an on and she seen in ED. She had no prior Hx of A fib or CKD. She was treated with fluids and IV diltiazem for rate control. She had urine culture obtained and placed on zosyn. Chest Xray was without infiltrate. As for ARF on CKD 3, there was no documented sustained hypotension but losartain and NSAIDs was taken at home. The HgA1c (7.5%) and lack of proteinuria argues against established Diabetic Nephropathy. HTN and vascular disease are likely given her relatively bland U/A. However, pyuria with minimal bacturia may suggest chronic interstitial nephritis. Today's renal U/S rules out stones, obstruction or pyelo and is relatively normal (see below). Most likely she has hemodynamically mediated ARF from ARBs and NSAIDs in the setting of a fib with RVR. Her underlying CKD 3 is not DM but REBECA, HTN or vascular disease are all possible. Renal U/s FINDINGS: Both kidneys are normal in size, position, configuration and echotexture: The right is 11 x 5 cm and the left 11 x 4.8 cm. No focal renal lesions, stone or hydronephrosis. Arterial blood flow is grossly normal to both kidneys with color Doppler. Urinary bladder volume is 255 cc with a 236 cc post void residual. No focal bladder lesions IMPRESSION: Both kidneys are unremarkable. Large postvoid residual - bladder otherwise normal Serum Creatinine 1.4 to 2.4 mg/dl past 48 hours with I/O 2300/1800 and weight up 6 lb. Nonoliguric. No documented hypotension till this AM. Was on ARB verapamil and amlodipine at home. Received no NSAIDs here and given IV dilt till rate decreased to 60's (po verapamil) and zosyn. No eosinophilia. Her Echocardiogram was reviewed and showed LVH with pLVEF. Increased right sided pressures and a small left to right shunt. Past History Past medical history: Medical history: Back pain (Acute) Osteoarthritis (Acute) Polyarthralgia (Acute) Vaginal prolapse (Chronic) Glaucoma (Chronic) Type 2 diabetes mellitus (Chronic) Essential hypertension (Chronic) Diverticular disease (Chronic) Memory deficit (Chronic) Rheumatoid arthritis (Chronic) Right radial head fracture (Acute) Contusion of right wrist (Acute) Contusion of right hip (Acute) Right knee pain (Acute) Surgical History History of appendectomy (Chronic) History of cholecystectomy (Chronic) History of hysterectomy (Chronic) History of tonsillectomy and adenoidectomy (Chronic) Family History Brother Coronary heart disease Social History marital status: occupational status: retired smoking status: Former smoker alcohol intake frequency: does not drink substance use type: does not use Medical - H&P: Meds Home Medications Medication Instructions Recorded Confirmed Type HYDROcodone/APAP 5/325MG 1 tab PO PRN PRN 02/02/16 02/02/16 History Ibuprofen [Motrin] 600 mg PO DAILY 02/02/16 02/02/16 History Omeprazole [Prilosec] 20 mg PO DAILY 02/02/16 02/02/16 History Verapamil [Calan Sr] 250 mg PO DAILY 02/02/16 02/02/16 History glipiZIDE [Glucotrol] 10 mg PO DAILY 02/02/16 02/02/16 History Prevagen Extra Strenght PO QDAY 01/16/18 01/16/18 History glipizide 10 mg tablet 10 mg PO BID 01/16/18 01/16/18 History insulin detemir U-100 SUB-Q 01/16/18 01/16/18 History losartan 100 mg tablet 100 mg PO QDAY 01/16/18 01/16/18 History verapamil ER 360 mg 24 hr 360 mg PO QDAY 01/16/18 01/16/18 History capsule,extended release vit B complex-folic acid PO QDAY 01/16/18 01/16/18 History diclofenac 1 % topical gel See Rx Instructions .ROUTE 01/18/18 01/18/18 Rx .COMPLEX #100 g Aspirin [Adult Low Dose Aspirin EC] 81 mg PO 07/16/19 History B-Complex with Vit C Caplet 1 tab PO DAILY 07/16/19 07/16/19 History Baby Vitamin D3 400 units PO DAILY 07/16/19 07/16/19 History Citracal + D Maximum Caplet 1 tab PO DAILY 07/16/19 07/16/19 History Lantus Solostar 15 units SQ DAILY 07/16/19 07/16/19 History Latanoprost 0.005% Eye Drop 1 gtt OU DAILY 07/16/19 07/16/19 History Omeprazole [PriLOSEC] 20 mg PO ACB 07/16/19 07/16/19 History Timolol 0.5% Ophth Drops 1 gtt OU BID 07/16/19 07/16/19 History amLODIPine [Norvasc] 5 mg PO DAILY 07/16/19 07/16/19 History Allergies Allergy/AdvReac Type Severity Reaction Status Date / Time propoxyphene Allergy Verified 07/16/19 15:12 [From Jorge Luis] Medications and Allergies Home Medications Medication Instructions Recorded Confirmed Type glipizide 10 mg tablet 10 mg PO BID 01/16/18 07/17/19 History insulin detemir U-100 SUB-Q 01/16/18 01/16/18 History losartan 100 mg tablet 100 mg PO QDAY 01/16/18 07/17/19 History verapamil ER 360 mg 24 hr 360 mg PO QDAY 01/16/18 07/17/19 History capsule,extended release vit B complex-folic acid PO QDAY 01/16/18 01/16/18 History Aspirin [Adult Low Dose Aspirin EC] 81 mg PO 07/16/19 History B-Complex with Vit C Caplet 1 tab PO DAILY 07/16/19 07/16/19 History Baby Vitamin D3 400 units PO DAILY 07/16/19 07/16/19 History Citracal + D Maximum Caplet 1 tab PO DAILY 07/16/19 07/16/19 History Lantus Solostar 15 units SQ DAILY 07/16/19 07/16/19 History Latanoprost 0.005% Eye Drop 1 gtt OU DAILY 07/16/19 07/16/19 History Omeprazole [PriLOSEC] 20 mg PO ACB 07/16/19 07/16/19 History Timolol 0.5% Ophth Drops 1 gtt OU BID 07/16/19 07/16/19 History amLODIPine [Norvasc] 5 mg PO DAILY 07/16/19 07/16/19 History Allergies Allergy/AdvReac Type Severity Reaction Status Date / Time propoxyphene AdvReac Mild severe Verified 07/17/19 09:31 [From Darcet-N] nausea and emesis Exam - Vital Signs Vital signs: Temp Pulse Resp BP Pulse Ox 98.8 F 95 H 20 106/74 96 07/18/19 11:48 07/18/19 11:48 07/18/19 11:48 07/18/19 11:48 07/18/19 11:48 - General Appearance General appearance: well-developed, appears started age EENT: ATNC, PERRL, mucous membranes moist, hearing intact, vision intact Neck: no JVD, no carotid bruit, supple, adenopathy Respiratory: clear Cardiology: no murmurs, no rub, no gallops, edema (1(+) edema), rapid rhythm, irregular rhythm, normal S1, normal S2 Gastrointestinal: normoactive bowel sounds, no tenderness, no organomegaly, no masses Integumentary: no rash, warm and dry Neurologic: no focal deficit, no asterixis, alert and oriented x3 Musculoskeletal: no deformities, no erythema, no cyanosis, no clubbing Psychiatric: mood/affect appropriate, cooperative Additional exam: 1(+) edema Results - Lab Results 07/18/19 03:38 07/18/19 03:38 Most recent lab results Calcium 8.7 mg/dl (8.6-10.4) 07/18/19 03:38 Phosphorus 5.4 mg/dL (2.7-4.5) H 07/18/19 03:38 Magnesium 2.1 mg/dL (1.6-2.5) 07/18/19 03:38 - Image Kidney/bladder ultrasound: report reviewed (See HPI) Assessment and Plan (1) Acute renal failure superimposed on stage 3 chronic kidney disease Suspect she has CKD 3 due to normal aging and HTN/vascular disease. Could also have REBECA from NSAID use for her DJD Hemodynamic effects of NSAIDs and ARB Baseline SCr 1.2 and GFR ~ 50cc/min Suspect ARF from combined effects of A fib with RVR and pre-hospitalization ARB and NSAIDs ATN and acute interstitial nephritis are less likely Avoid NSAIDS Keep volume expanded / well hydrated Verapamil is ok Hold ARB till GFR improves Avoid amlodipine as could have helped ppt A fib FeNa and Urine eosinophils have been ordered. Trend labs. Status: Acute Priority: High Qualifiers: Acute renal failure type: unspecified Qualified Code(s): N17.9 - Acute kidney failure, unspecified; N18.3 - Chronic kidney disease, stage 3 (moderate)
[2019-07-18] MEDS ORDERED: WARFARIN 5 MG TABLET PO ONE (14:00)
--- NOTE | 2019-07-18 14:20 | Internal Med Progress Note ---
Medical - PN: Subj Patient information: Note initiated : 07/18/19 at 2:14 pm Service Date, if different from initiated Date: [] Patient: Candy Sierra a 84 y/o F admitted on 07/16/19 for irregular heart rate, difficulty breathing. Chief Complaint: [] Interval history: Ms. Sierra is a 84 year old F with known history of diabetes/hypertension who presents to the ER with over 24-hour onset of chest palpitations/shortness of breath. Patient lives fairly independently at [place]. She went to the library where she started experiencing pounding sensation along with shortness of breath. She was helped by the technical services librarian to her home. She could not get a hold of her kids in the evening and remained at home all night trying to work with the symptoms. This morning she woke up with similar symptoms and subsequently came to the ER for evaluation. She denies associated chest pain but felt like pressure. She denies associated diaphoresis lightheadedness or dizziness. Initial work-up was consistent with A. fib RVR with heart rate around 170. Patient was started on diltiazem with resultant heart rate stabilizing around 110. Chest imaging reveals bilateral basilar pneumonia, pyuria on UA. Subsequently hospitalist service was consulted. At the time of evaluation patient is alert and oriented. She was able to answer most questions. She was able to endorse history as above. Recently was on a vacation with her son at [facility]. She denies exposure to sick contact. She further denies nxul-wib-abeshsc cough suppressant or NSAIDs. She denies lower extremity pain swelling or prolonged immobilization or history of clotting or bleeding disorder. 07/17-patient doing well. No overnight events. Intermittent A. fib RVR currently on diltiazem drip. On review patient is not on verapamil as per pharmacy. She is currently only on losartan. Start verapamil at home dose titrate diltiazem drip. Continue full dose anticoagulation on Lovenox. Await echocardiogram. Patient will be a candidate for novel oral anticoagulants if nonvalvular A. fib. Creatinine 1.6. Pyuria. Check urine culture. Consider antibiotic if fever or flank pain noted. Patient may be a candidate for cardioversion if unable to convert spontaneously in the next 30 days due to symptomatic A. fib 07/18-patient doing well on p.o. verapamil. Echo 65% EF with mild stenosis and regurgitation. Started on Coumadin for CVA prophylaxis after discussion of risk and benefits with patient. Diuresing well. Improved shortness of breath. Heart rate study around 90s. Creatinine bump noted from a baseline of and 2007-2.2. Nephrology consulted. No nephrotoxins on medication list. Zosyn discontinued for concerns of interstitial nephritis. 07/19 - Constitutional Vitals: Vital Signs Temp Pulse Resp BP Pulse Ox 98.8 F 95 H 20 106/74 96 07/18/19 11:48 07/18/19 11:48 07/18/19 11:48 07/18/19 11:48 07/18/19 11:48 Period Temp Pulse Resp BP Sys/Kaminski Pulse Ox Last 24 Hr 97.0 F-98.8 F 55-95 16-20 102-144/62-91 96-99 Intake and Output 07/18/19 07/18/19 07/18/19 05:59 13:59 21:59 Intake Total 350 530 Output Total 200 250 Balance 150 280 Intake & Output: Intake & Output 07/18/19 07/18/19 07/18/19 05:59 13:59 21:59 Intake Total 350 530 Output Total 200 250 Balance 150 280 Intake: IV 50 50 Zosyn 3.375 gm In Dextrose 5% 50 50 in Water 50 ml @ 100 mls/hr IV Q6H [facility] Rx#:[id number] Oral 300 480 Output: Urine Catheter Amount 150 25 Void Amount 50 225 Other: Meal Lunch Percent of Meal Consumed 50% Feeding Ability Independent Urine Appearance Clear Clear Urine Color Dark Yellow Bright Yellow Urine Odor Strong Normal Stool Size Small Moderate Stool Color Brown Brown Stool Consistency Loose Soft Formed # Voids 1 1 # Bowel Movements 1 1 # of times incontinent of 1 Bowels Exam: General: Alert, Awake, No acute Distress, obese Eyes/N/T: EOMI, Head/Neck: neck supple, CV: irreg irreg, No murmurs, Pulm: Clear b/l, no wheezing/rhonchi/rales Abd: soft, nontender, +BS x4 Ext: no clubbing/cyanosis/edema Neuro: Alert, no focal deficits, moves all extremities, Skin: warm/dry Medical - PN: Obj Da - Labs CBC & Chem 7: 07/18/19 03:38 07/18/19 03:38 Labs: Abnormal Lab Results 07/18/19 07/18/19 07/18/19 10:53 10:28 03:38 RBC Hgb Hct RDW PT 15.8 H INR 1.3 H Carbon Dioxide 17 L BUN 39 H Creatinine 2.2 H Glucose 108 H Uric Acid 8.2 H Phosphorus 5.4 H Urine Protein 30 A Urine Occult Blood Trace A Ur Leukocyte Esterase 250 A Urine RBC 11 H Urine WBC 18 H Urine Bacteria Few A Hyaline Casts 07/18/19 07/17/19 07/17/19 03:38 03:30 03:30 RBC 3.66 L 3.73 L Hgb 10.6 L 10.9 L Hct 32.1 L 32.3 L RDW 15.0 H 14.8 H PT INR Carbon Dioxide 19 L BUN 31 H Creatinine 1.6 H Glucose 128 H Uric Acid 8.7 H Phosphorus Urine Protein Urine Occult Blood Ur Leukocyte Esterase Urine RBC Urine WBC Urine Bacteria Hyaline Casts 07/16/19 07/16/19 07/16/19 17:15 15:49 15:49 RBC Hgb 11.8 L Hct 35.6 L RDW 14.8 H PT INR Carbon Dioxide 16 L BUN 30 H Creatinine 1.4 H Glucose 128 H Uric Acid Phosphorus Urine Protein Urine Occult Blood Ur Leukocyte Esterase 250 A Urine RBC Urine WBC 40 H Urine Bacteria Few A Hyaline Casts 6 H Meds: Medications Acetaminophen (Tylenol) 650 mg PO Q4-6HP PRN PRN Reason: PAIN/FEVER > 101 Last Admin: 07/18/19 10:11 Dose: 650 mg Documented by: Dextrose (Dextrose 50%) 0 ml IV UD PRN PRN Reason: Hypoglycemia Diagnostic Test (Pha) (Accu-Chek) 1 each FS ACHS [facility] Last Admin: 07/18/19 11:39 Dose: 1 each Documented by: Docusate Sodium (Colace) 100 mg PO BID [facility] Last Admin: 07/18/19 08:04 Dose: Not Given Documented by: Enoxaparin Sodium (Lovenox) 80 mg SQ BID [facility] Last Admin: 07/18/19 09:37 Dose: 80 mg Documented by: Glucose (Insta-Glucose) 15 gm PO PRN PRN PRN Reason: Hypoglycemia Magnesium Sulfate (Magnesium Sulfate) 2 gm in 50 mls @ 50 mls/hr IV UD PRN PRN Reason: MG = or < 1.7 Acetaminophen (Ofirmev) 1,000 mg in 100 mls @ 200 mls/hr IV Q6HP PRN PRN Reason: PAIN/FEVER > 101 Diltiazem HCl 125 mg/ Dextrose 125 mls @ 5 mls/hr IV Q12HP PRN; Protocol PRN Reason: Tachyarrhythmias Insulin Human Lispro (Humalog) 0 unit SQ ACHS [facility]; Protocol Last Admin: 07/18/19 11:43 Dose: 3 units Documented by: Iron Carb/Multivit/Animal Humane Agent Supervisor/Folic Acid (Multivitamin W/Minerals) 1 tab PO DAILY [facility] Last Admin: 07/18/19 09:37 Dose: 1 tab Documented by: Magnesium Hydroxide (Milk Of Magnesia) 30 ml PO [facility] PRN PRN Reason: Constipation Melatonin (Melatonin 3mg Tablet) 3 mg PO HSP PRN PRN Reason: Insomnia Last Admin: 07/17/19 20:36 Dose: 3 mg Documented by: Ondansetron HCl (Zofran) 4 mg IV Q4-6HP PRN PRN Reason: Nausea And Vomiting Last Admin: 07/17/19 16:22 Dose: 4 mg Documented by: Potassium Chloride (Klor-Con) 40 meq PO DAILYP PRN PRN Reason: K+ < 3.5 Senna/Docusate Sodium (Senna Plus Tablet) 1 tab PO HS [facility] Last Admin: 07/17/19 21:54 Dose: Not Given Documented by: Sodium Chloride (Saline Flush) 10 ml IV Q8 [facility] Last Admin: 07/18/19 05:35 Dose: 10 ml Documented by: Verapamil HCl (Calan Sr) 360 mg PO DAILY [facility] Last Admin: 07/18/19 09:37 Dose: 360 mg Documented by: Warfarin Sodium (Coumadin Per Pharmacy) 1 order PO UD [facility] Medical - PN: A/P - Time Spent With Patient Total time spent is greater than 50% in coordination of care (as documented) at patient's floor/unit and/or counseling patient: - Narrative A/P Narrative: A: *AFib w/RVR: unclear if new onset of paroxysmal. Possibly secondary to s uboptimally controlled hypertension/MS/MR -Echo EF 65% with mod MS, LAE, mod TR, diastolic dysfxn -Discussed options for oral anticoagulants for stroke ppx. Started on Coumadin based on Chads vasc score. -Mag ok, TSH wnl *Pulm HTN, mod: *h/o VT post-op 2016 @[facility]: *KANDY on CKD III likely: -renal u/s no acute path -2.2<1.6<1.4 *Atelectasis: *Acute cystitis: *DM II: *HTN: home ARB/verapamil/norvasc *GERD: continue PPI *Obese: *Dementia, mild: *Hypomag: Plan: -Rate control on verapamil -echo pending -replete mag -check TSH -Neprhology following -IVF today -urine studies -DC Zosyn -hold ARB for KANDY, have not restarted norvasc yet -IS -basal and SSI -ppx: lovenox qd adjusted for renal with warfarin bridge per pharmacy DNR
[2019-07-18 16:37] LABS: Thyroid Stimulating Hormone 1.63 uIU/ml (0.27-5.01)
[2019-07-18] MEDS ORDERED: LACTATED RINGERS 1,000 ML IV SCH (18:00)
[2019-07-18] MEDS ORDERED: LACTATED RINGERS 500 ML IV SCH (18:00)
[2019-07-18] MEDS: SENNOSIDES/DOCUSATE SODIUM 1 TAB TABLET PO SCH (21:00)
[2019-07-18] MEDS: FAMOTIDINE 20 MG TABLET PO SCH (21:04)
[2019-07-18] MEDS: MELATONIN 3 MG TABLET PO PRN (21:32)
[2019-07-19] MEDS: 0.9 % SODIUM CHLORIDE 10 ML SYRINGE IV SCH ×4 (05:26→20:44)
[2019-07-19 05:37] LABS: INR 1.2 (0.9-1.1); Prothrombin Time 14.8 sec (11.9-14.5)
[2019-07-19 05:42] LABS: Hematocrit 32.8 % (36.0-48.0); Hemoglobin 10.9 g/dL (12.0-15.0); Mean Corpuscular HGB Conc 33.3 g/dL (31.0-36.0); Mean Platelet Volume 8.5 fL (7.4-10.4); Platelet Count 161 K/mcL (140-440); RBC 3.76 M/mcL (4.00-5.20); Red Cell Distribution Width 14.6 % (11.5-14.5); WBC 5.3 K/mcL (4.5-11.0)
[2019-07-19 06:07] LABS: ALT/SGPT 34 U/l (0-40); AST/SGOT 24 U/l (0-37); Albumin 3.7 gm/dL (3.2-5.2); Albumin/Globulin Ratio 1.3 (1.0-2.3); Alkaline Phosphatase 64 U/L (39-117); Bilirubin,Direct < 0.2 mg/dL (0.0-0.3); Bilirubin,Total 0.3 mg/dL (0.0-1.0); Blood Urea Nitrogen 39 mg/dl (8-23); Calcium 8.7 mg/dl (8.6-10.4); Carbon Dioxide 17 mmol/L (22-30); Chloride 100 mmol/L (96-108); Globulin 2.8 gm/dL (2.2-3.7); Glomerular Filtration Rate 30; Glucose 155 mg/dL (70-105); Lactate Dehydrogenase 233 U/L (94-250); Phosphorous 3.9 mg/dL (2.7-4.5); Triglycerides 103 mg/dl (<150); Uric Acid 7.9 mg/dL (2.5-8.0)
[2019-07-19 07:28] LABS: Band Neutrophils % 1 % (0-10); Eosinophils % (Manual) 2 % (0-7); Lymphocytes % 23 % (15-49); Monocytes % (Manual) 6 % (1-12); Platelet Estimate NORMAL (NORMAL); RBC Morphology NORMAL (NORMAL); Segmented Neutrophils % 68 % (38-78)
[2019-07-19] MEDS: DOCUSATE SODIUM 100 MG CAPSULE PO SCH ×2 (07:50→20:45)
[2019-07-19] MEDS: INSULIN LISPRO 1 UNIT/0.01 ML UNIT SQ SCH ×4 (07:50→20:44)
--- NOTE | 2019-07-19 08:12 | Internal Med Progress Note ---
Medical - PN: Subj Patient information: Note initiated : 07/19/19 at 8:10 am Service Date, if different from initiated Date: [] Patient: Candy Sierra a 84 y/o F admitted on 07/16/19 for irregular heart rate, difficulty breathing. Chief Complaint: [] Interval history: Ms. Sierra is a 84 year old F with known history of diabetes/hypertension who presents to the ER with over 24-hour onset of chest palpitations/shortness of breath. Patient lives fairly independently at [place]. She went to the library where she started experiencing pounding sensation along with shortness of breath. She was helped by the wool hat flanger to her home. She could not get a hold of her kids in the evening and remained at home all night trying to work with the symptoms. This morning she woke up with similar symptoms and subsequently came to the ER for evaluation. She denies associated chest pain but felt like pressure. She denies associated diaphoresis lightheadedness or dizziness. Initial work-up was consistent with A. fib RVR with heart rate around 170. Patient was started on diltiazem with resultant heart rate stabilizing around 110. Chest imaging reveals bilateral basilar pneumonia, pyuria on UA. Subsequently hospitalist service was consulted. At the time of evaluation patient is alert and oriented. She was able to answer most questions. She was able to endorse history as above. Recently was on a vacation with her son at [facility]. She denies exposure to sick contact. She further denies unac-mhm-xvkzduy cough suppressant or NSAIDs. She denies lower extremity pain swelling or prolonged immobilization or history of clotting or bleeding disorder. 07/17-patient doing well. No overnight events. Intermittent A. fib RVR currently on diltiazem drip. On review patient is not on verapamil as per pharmacy. She is currently only on losartan. Start verapamil at home dose titrate diltiazem drip. Continue full dose anticoagulation on Lovenox. Await echocardiogram. Patient will be a candidate for novel oral anticoagulants if nonvalvular A. fib. Creatinine 1.6. Pyuria. Check urine culture. Consider antibiotic if fever or flank pain noted. Patient may be a candidate for cardioversion if unable to convert spontaneously in the next 30 days due to symptomatic A. fib 07/18-patient doing well on p.o. verapamil. Echo 65% EF with mild stenosis and regurgitation. Started on Coumadin for CVA prophylaxis after discussion of risk and benefits with patient. Diuresing well. Improved shortness of breath. Heart rate study around 90s. Creatinine bump noted from a baseline of and 2007-2.2. Nephrology consulted. No nephrotoxins on medication list. Zosyn discontinued for concerns of interstitial nephritis. 07/19 Had some leg cramping overnight that kept her up, not tolerate YO hose. Otherw ise no complaints. No overnight events. Creatinine improving. Low FENa and urine sodium, was given 500 of NS yesterday. Heart rates have been 60s to 100 overnight. Review of Systems: denies headache/fever/chills/nausea/vomiting/chest or abdominal pain/cough/dyspnea. Otherwise see above. - Constitutional Vitals: Vital Signs Temp Pulse Resp BP Pulse Ox 97.7 F 84 15 139/92 98 07/19/19 07:46 07/18/19 20:00 07/19/19 07:46 07/19/19 07:46 07/19/19 07:46 Period Temp Pulse Resp BP Sys/Kaminski Pulse Ox Last 24 Hr 97.0 F-98.8 F 77-95 15-20 82-149/67-92 96-99 Intake and Output 07/18/19 07/19/19 07/19/19 21:59 05:59 13:59 Intake Total 600 660 Output Total 225 325 250 Balance 375 335 -250 Weight 88.723 kg Intake & Output: Intake & Output 07/18/19 07/19/19 07/19/19 21:59 05:59 13:59 Intake Total 600 660 Output Total 225 325 250 Balance 375 335 -250 Weight 88.723 kg Intake: IV 500 Oral 600 160 Output: Void Amount 225 325 250 Other: Meal Dinner Percent of Meal Consumed 100% Feeding Ability Independent Urine Appearance Clear Clear Urine Color Bright Yellow Bright Yellow Bright Yellow Urine Odor Strong Stool Size Large Small Stool Color Brown Brown Stool Consistency Soft Soft Loose Formed # Voids 1 1 # Bowel Movements 1 1 Exam: General: Alert, Awake, No acute Distress, obese Eyes/N/T: EOMI, Head/Neck: neck supple, CV: irreg irreg, No murmurs, Pulm: Clear b/l, no wheezing/rhonchi/rales Abd: soft, nontender, +BS x4 Ext: no clubbing/cyanosis, 2+ b/l LE edema Neuro: Alert, no focal deficits, moves all extremities, Skin: warm/dry Medical - PN: Obj Da - Labs CBC & Chem 7: 07/19/19 04:08 07/19/19 04:08 Labs: Abnormal Lab Results 07/19/19 07/19/19 07/19/19 04:08 04:08 04:08 RBC 3.76 L Hgb 10.9 L Hct 32.8 L RDW 14.6 H PT 14.8 H INR 1.2 H Sodium 132 L Carbon Dioxide 17 L BUN 39 H Creatinine 1.6 H Glucose 155 H Uric Acid Phosphorus Urine Protein Urine Occult Blood Ur Leukocyte Esterase Urine RBC Urine WBC Urine Bacteria Hyaline Casts 07/18/19 07/18/19 07/18/19 10:53 10:28 03:38 RBC Hgb Hct RDW PT 15.8 H INR 1.3 H Sodium Carbon Dioxide 17 L BUN 39 H Creatinine 2.2 H Glucose 108 H Uric Acid 8.2 H Phosphorus 5.4 H Urine Protein 30 A Urine Occult Blood Trace A Ur Leukocyte Esterase 250 A Urine RBC 11 H Urine WBC 18 H Urine Bacteria Few A Hyaline Casts 07/18/19 07/17/19 07/17/19 03:38 03:30 03:30 RBC 3.66 L 3.73 L Hgb 10.6 L 10.9 L Hct 32.1 L 32.3 L RDW 15.0 H 14.8 H PT INR Sodium Carbon Dioxide 19 L BUN 31 H Creatinine 1.6 H Glucose 128 H Uric Acid 8.7 H Phosphorus Urine Protein Urine Occult Blood Ur Leukocyte Esterase Urine RBC Urine WBC Urine Bacteria Hyaline Casts 07/16/19 07/16/19 07/16/19 17:15 15:49 15:49 RBC Hgb 11.8 L Hct 35.6 L RDW 14.8 H PT INR Sodium Carbon Dioxide 16 L BUN 30 H Creatinine 1.4 H Glucose 128 H Uric Acid Phosphorus Urine Protein Urine Occult Blood Ur Leukocyte Esterase 250 A Urine RBC Urine WBC 40 H Urine Bacteria Few A Hyaline Casts 6 H Meds: Medications Acetaminophen (Tylenol) 650 mg PO Q4-6HP PRN PRN Reason: PAIN/FEVER > 101 Last Admin: 07/18/19 19:32 Dose: 650 mg Documented by: Dextrose (Dextrose 50%) 0 ml IV UD PRN PRN Reason: Hypoglycemia Diagnostic Test (Pha) (Accu-Chek) 1 each FS ACHS [facility] Last Admin: 07/19/19 07:49 Dose: 1 each Documented by: Docusate Sodium (Colace) 100 mg PO BID [facility] Last Admin: 07/19/19 07:50 Dose: Not Given Documented by: Enoxaparin Sodium (Lovenox) 80 mg SQ DAILY [facility] Famotidine (Pepcid) [address] [facility] Last Admin: 07/18/19 21:04 Dose: 20 mg Documented by: Glucose (Insta-Glucose) 15 gm PO PRN PRN PRN Reason: Hypoglycemia Magnesium Sulfate (Magnesium Sulfate) 2 gm in 50 mls @ 50 mls/hr IV UD PRN PRN Reason: MG = or < 1.7 Acetaminophen (Ofirmev) 1,000 mg in 100 mls @ 200 mls/hr IV Q6HP PRN PRN Reason: PAIN/FEVER > 101 Diltiazem HCl 125 mg/ Dextrose 125 mls @ 5 mls/hr IV Q12HP PRN; Protocol PRN Reason: Tachyarrhythmias Insulin Human Lispro (Humalog) 0 unit SQ [facility]; Protocol Last Admin: 07/19/19 07:50 Dose: Not Given Documented by: Iron Carb/Multivit/Ray/Folic Acid (Multivitamin W/Minerals) 1 tab PO DAILY [facility] Last Admin: 07/18/19 09:37 Dose: 1 tab Documented by: Magnesium Hydroxide (Milk Of Magnesia) 30 ml PO HSP PRN PRN Reason: Constipation Melatonin (Melatonin 3mg Tablet) 3 mg PO HSP PRN PRN Reason: Insomnia Last Admin: 07/18/19 21:32 Dose: 3 mg Documented by: Ondansetron HCl (Zofran) 4 mg IV Q4-6HP PRN PRN Reason: Nausea And Vomiting Last Admin: 07/17/19 16:22 Dose: 4 mg Documented by: Potassium Chloride (Klor-Con) 40 meq PO DAILYP PRN PRN Reason: K+ < 3.5 Senna/Docusate Sodium (Senna Plus Tablet) [address] [facility] Last Admin: 07/18/19 21:00 Dose: Not Given Documented by: Sodium Chloride (Saline Flush) 10 ml IV Q8 [facility] Last Admin: 07/19/19 05:26 Dose: 10 ml Documented by: Verapamil HCl (Calan Sr) 360 mg PO DAILY [facility] Last Admin: 07/18/19 09:37 Dose: 360 mg Documented by: Warfarin Sodium (Coumadin Per Pharmacy) 1 order PO UD [facility] Medical - PN: A/P - Time Spent With Patient Total time spent is greater than 50% in coordination of care (as documented) at patient's floor/unit and/or counseling patient: - Narrative A/P Narrative: A: *AFib w/RVR: unclear if new onset or paroxysmal. Possibly secondary to suboptimally controlled hypertension/MS -rate 60-100 -Echo EF 65% with mod MS, LAE, mod TR, diastolic dysfxn -Discussed options for oral anticoagulants for stroke ppx. Started on Coumadin based on Chads vasc score. -Mag ok, TSH wnl *Pulm HTN, mod: *h/o VT post-op 2016 @[facility]: *KANDY on CKD III likely (?baseline Cr): -renal u/s no acute path -1.6<2.2<1.6<1.4 *Atelectasis: *Acute cystitis: *DM II: *HTN: home ARB/verapamil/norvasc *GERD: continue PPI *Obese: *Dementia, mild: Plan: -Rate control on home verapamil -Neprhology following -hold ARB for KANDY, norvasc has not been restarted yet -IS -basal and SSI -ppx: lovenox qd adjusted for renal with warfarin bridge per pharmacy DNR
[2019-07-19] MEDS: MULTIVIT,THER IRON,CA,FA & MIN 1 TABLET PO SCH (08:22)
[2019-07-19] MEDS: VERAPAMIL 180 MG TAB.XL.24H PO SCH (08:23)
[2019-07-19] MEDS: ENOXAPARIN 80 MG/0.8 ML SYRINGE SQ SCH (08:29)
[2019-07-19] MEDS: ACETAMINOPHEN 325 MG TABLET PO PRN (10:46)
--- NOTE | 2019-07-19 12:51 | Nephrology Progress Note ---
Subjective Patient information: Note initiated : 07/19/19 at 12:45 pm Service Date, if different from initiated Date: [] Patient: Candy Sierra 84 y/o F admitted on 07/16/19 for irregular heart rate, difficulty breathing. Chief Complaint: [] Principal diagnosis: A fib with RVR and Acute Prerenal azotemia on CKD 3 Interval history: Seems better today. HR 90-100's in a fib on anticoagulation. Walked halls with minimal respiratory distress No SSCP Renal function improved towards her baseline FeNa <1% c/w renal hypoperfusion - AFIB with RVR + losartan = prerenal state VS reviewed Labs reviewed Patient seen, examined and data reviewed. Pertinent ROS: No new complaints Improved breathing and palpatations Good appetite Additional PMFSH (Level 3 Only): Quit smoking in 1974 Objective - Vital Signs Vital signs: Vital Signs Temp Pulse Pulse Resp BP BP Pulse Ox 07/19/19 11:53 98.4 F 17 122/74 98 07/19/19 08:00 101 H 15 98 07/19/19 07:46 97.7 F 15 139/92 98 07/19/19 04:00 98.0 F 18 149/67 98 07/18/19 23:37 98.4 F 115/79 97 07/18/19 23:34 98 F 18 115/79 96 07/18/19 20:00 97.7 F 84 20 142/79 98 07/18/19 19:24 97.7 F 84 20 142/79 98 07/18/19 19:05 142/79 97 07/18/19 16:20 130/68 98 07/18/19 16:18 97.3 F 77 16 130/68 99 Intake and Output 07/18/19 07/19/19 07/19/19 21:59 05:59 13:59 Intake Total 600 660 360 Output Total 225 325 450 Balance 375 335 -90 Intake: IV 500 Oral 600 160 360 Output: Void Amount 225 325 450 Other: Meal Dinner Lunch Percent of Meal Consumed 100% 100% Feeding Ability Independent Independent Urine Appearance Clear Clear Urine Color Bright Yellow Bright Yellow Bright Yellow Urine Odor Strong Stool Size Large Small Moderate Stool Color Brown Brown Brown Stool Consistency Soft Soft Soft Loose Formed # Voids 1 1 # Bowel Movements 1 1 1 Weight 195 lb 9.6 oz Intake & Output: Intake & Output 07/18/19 07/19/19 07/19/19 21:59 05:59 13:59 Intake Total 600 660 360 Output Total 225 325 450 Balance 375 335 -90 Weight 195 lb 9.6 oz Intake: IV 500 Oral 600 160 360 Output: Void Amount 225 325 450 Other: Meal Dinner Lunch Percent of Meal Consumed 100% 100% Feeding Ability Independent Independent Urine Appearance Clear Clear Urine Color Bright Yellow Bright Yellow Bright Yellow Urine Odor Strong Stool Size Large Small Moderate Stool Color Brown Brown Brown Stool Consistency Soft Soft Soft Loose Formed # Voids 1 1 # Bowel Movements 1 1 1 - General Appearance General appearance: well-developed, well-nourished, appears started age EENT: ATNC, PERRL, mucous membranes dry Neck: no JVD, no thyromegaly, no carotid bruit, supple Respiratory: kyphosis, clear Cardiology: no murmurs, no rub, no gallops, edema, rapid rhythm, irregular rhythm, normal S1, normal S2 Gastrointestinal: normoactive bowel sounds, no tenderness, no masses Integumentary: no rash, warm and dry Neurologic: no focal deficit, no asterixis, alert and oriented x3, strength 5/5, CN 3-12 intact Musculoskeletal: no deformities, no erythema Psychiatric: mood/affect appropriate, cooperative - Lab 07/19/19 04:08 07/19/19 04:08 Most recent lab results Calcium 8.7 mg/dl (8.6-10.4) 07/19/19 04:08 Phosphorus 3.9 mg/dL (2.7-4.5) 07/19/19 04:08 Magnesium 2.0 mg/dL (1.6-2.5) 07/19/19 04:08 - Imaging Kidney/bladder ultrasound: report reviewed - Allied health notes Allied health notes reviewed: RT (SOB after short walk) Assessment and Plan (1) Acute renal failure superimposed on stage 3 chronic kidney disease Improved acute renal failure. Still tachycardia and BP less than baseline suggests she could use some IVF. Once BP improves a little, would use SHORT ACTING VERAPAMIL for rate control and a BP Rx that would not interfer with any bronchodilators she may need.Expect reture of SCr to 1.2 mg/dl soon. Status: Acute Priority: High Comment: Acute prerenal azotemia Qualifiers: Acute renal failure type: unspecified Qualified Code(s): N17.9 - Acute kidney failure, unspecified; N18.3 - Chronic kidney disease, stage 3 (moderate) (2) Atrial fibrillation with RVR Status: Acute
[2019-07-19] MEDS ORDERED: 0.9 % SODIUM CHLORIDE 250 ML IV PRN (13:11)
[2019-07-19] MEDS ORDERED: DILTIAZEM 25 MG/5 ML VIAL IV ONE (13:24)
[2019-07-19] MEDS ORDERED: WARFARIN 5 MG TABLET PO ONE (14:00)
[2019-07-19] MEDS: VERAPAMIL HCL 80 MG TABLET PO SCH ×2 (14:21→20:44)
[2019-07-19] MEDS: ONDANSETRON 4 MG/2 ML VIAL IV PRN (19:22)
[2019-07-19] MEDS: FAMOTIDINE 20 MG TABLET PO SCH (20:44)
[2019-07-19] MEDS: SENNOSIDES/DOCUSATE SODIUM 1 TAB TABLET PO SCH (20:45)
[2019-07-20] MEDS: ACETAMINOPHEN 325 MG TABLET PO PRN ×2 (00:15→09:22)
[2019-07-20] MEDS: 0.9 % SODIUM CHLORIDE 10 ML SYRINGE IV SCH ×3 (04:55→20:55)
[2019-07-20 06:09] LABS: Retic Absolute 2.5 % (0.5-1.5)
[2019-07-20 06:20] LABS: INR 1.3 (0.9-1.1); Prothrombin Time 15.9 sec (11.9-14.5)
[2019-07-20 06:28] LABS: Blood Urea Nitrogen 41 mg/dl (8-23); Calcium 8.6 mg/dl (8.6-10.4); Carbon Dioxide 17 mmol/L (22-30); Chloride 102 mmol/L (96-108); Glomerular Filtration Rate 30; Glucose 167 mg/dL (70-105)
[2019-07-20 06:43] LABS: Iron 37 mcg/dl (37-145); TIBC Calculation 285 ug/dl (228-428); Transferrin % Saturation 12 % (15-50)
[2019-07-20] MEDS: INSULIN LISPRO 1 UNIT/0.01 ML UNIT SQ SCH ×4 (07:51→21:02)
[2019-07-20] MEDS: ONDANSETRON 4 MG/2 ML VIAL IV PRN (07:52)
--- NOTE | 2019-07-20 08:19 | Internal Med Progress Note ---
Medical - PN: Subj Patient information: Note initiated : 07/20/19 at 8:15 am Service Date, if different from initiated Date: [] Patient: Candy Sierra a 84 y/o F admitted on 07/16/19 for irregular heart rate, difficulty breathing. Chief Complaint: [] Interval history: Ms. Sierra is a 84 year old F with known history of diabetes/hypertension who presents to the ER with over 24-hour onset of chest palpitations/shortness of breath. Patient lives fairly independently at [place]. She went to the library where she started experiencing pounding sensation along with shortness of breath. She was helped by the chief librarian branch or department to her home. She could not get a hold of her kids in the evening and remained at home all night trying to work with the symptoms. This morning she woke up with similar symptoms and subsequently came to the ER for evaluation. She denies associated chest pain but felt like pressure. She denies associated diaphoresis lightheadedness or dizziness. Initial work-up was consistent with A. fib RVR with heart rate around 170. Patient was started on diltiazem with resultant heart rate stabilizing around 110. Chest imaging reveals bilateral basilar pneumonia, pyuria on UA. Subsequently hospitalist service was consulted. At the time of evaluation patient is alert and oriented. She was able to answer most questions. She was able to endorse history as above. Recently was on a vacation with her son at [facility]. She denies exposure to sick contact. She further denies idbt-[id number] cough suppressant or NSAIDs. She denies lower extremity pain swelling or prolonged immobilization or history of clotting or bleeding disorder. 07/17-patient doing well. No overnight events. Intermittent A. fib RVR currently on diltiazem drip. On review patient is not on verapamil as per pharmacy. She is currently only on losartan. Start verapamil at home dose titrate diltiazem drip. Continue full dose anticoagulation on Lovenox. Await echocardiogram. Patient will be a candidate for novel oral anticoagulants if nonvalvular A. fib. Creatinine 1.6. Pyuria. Check urine culture. Consider antibiotic if fever or flank pain noted. Patient may be a candidate for cardioversion if unable to convert spontaneously in the next 30 days due to symptomatic A. fib 07/18-patient doing well on p.o. verapamil. Echo 65% EF with mild stenosis and regurgitation. Started on Coumadin for CVA prophylaxis after discussion of risk and benefits with patient. Diuresing well. Improved shortness of breath. Heart rate study around 90s. Creatinine bump noted from a baseline of and 2007-2.2. Nephrology consulted. No nephrotoxins on medication list. Zosyn discontinued for concerns of interstitial nephritis. 07/19 Had some leg cramping overnight that kept her up, not tolerate YO hose. Otherw ise no complaints. No overnight events. Creatinine improving. Low FENa and urine sodium, was given 500 of NS yesterday. Heart rates have been 60s to 100 overnight. 07/20 Unable to tolerate YO hose but tolerating SCDs. Slept better. Rate better. INR still subtherapeutic on Lovenox bridge. Review of Systems: denies headache/fever/chills/nausea/vomiting/chest or abdominal pain/cough/dyspnea. Otherwise see above. - Constitutional Vitals: Vital Signs Temp Pulse Resp BP Pulse Ox 97.8 F 88 20 130/64 96 07/20/19 03:07 07/20/19 03:07 07/20/19 03:07 07/20/19 03:07 07/20/19 03:07 Period Temp Pulse Resp BP Sys/Kaminski Pulse Ox Last 24 Hr 97.4 F-98.4 F 70-88 17-20 122-149/64-74 93-98 Intake and Output 07/19/19 07/20/19 07/20/19 21:59 05:59 13:59 Intake Total 200 Output Total 125 300 Balance -125 -100 Weight 91.852 kg Intake & Output: Intake & Output 07/19/19 07/20/19 07/20/19 21:59 05:59 13:59 Intake Total 200 Output Total 125 300 Balance -125 -100 Weight 91.852 kg Intake: Oral 200 Output: Void Amount 125 300 Other: Meal Dinner Percent of Meal Consumed 25% Urine Appearance Clear Urine Color Bright Yellow Stool Size Small Stool Color Brown Stool Consistency Soft # Voids 1 # Bowel Movements 1 Exam: General: Alert, Awake, No acute Distress, obese Eyes/N/T: EOMI, Head/Neck: neck supple, CV: irreg irreg, No murmurs, Pulm: Clear b/l, no wheezing/rhonchi/rales Abd: soft, nontender, +BS x4 Ext: no clubbing/cyanosis, 2+ b/l LE edema Neuro: Alert, no focal deficits, moves all extremities, Skin: warm/dry Medical - PN: Obj Da - Labs CBC & Chem 7: 07/19/19 04:08 07/20/19 04:02 Labs: Abnormal Lab Results 07/20/19 07/20/19 07/20/19 04:02 04:02 04:02 RBC Hgb Hct RDW Absolute Retic 2.5 H PT INR Sodium Carbon Dioxide 17 L BUN 41 H Creatinine 1.6 H Glucose 167 H Uric Acid Phosphorus Transferrin % Sat 12 L Urine Protein Urine Occult Blood Ur Leukocyte Esterase Urine RBC Urine WBC Urine Bacteria 07/20/19 07/19/19 07/19/19 04:02 04:08 04:08 RBC Hgb Hct RDW Absolute Retic PT 15.9 H 14.8 H INR 1.3 H 1.2 H Sodium 132 L Carbon Dioxide 17 L BUN 39 H Creatinine 1.6 H Glucose 155 H Uric Acid Phosphorus Transferrin % Sat Urine Protein Urine Occult Blood Ur Leukocyte Esterase Urine RBC Urine WBC Urine Bacteria 07/19/19 07/18/19 07/18/19 04:08 10:53 10:28 RBC 3.76 L Hgb 10.9 L Hct 32.8 L RDW 14.6 H Absolute Retic PT 15.8 H INR 1.3 H Sodium Carbon Dioxide BUN Creatinine Glucose Uric Acid Phosphorus Transferrin % Sat Urine Protein 30 A Urine Occult Blood Trace A Ur Leukocyte Esterase 250 A Urine RBC 11 H Urine WBC 18 H Urine Bacteria Few A 07/18/19 07/18/19 03:38 03:38 RBC 3.66 L Hgb 10.6 L Hct 32.1 L RDW 15.0 H Absolute Retic PT INR Sodium Carbon Dioxide 17 L BUN 39 H Creatinine 2.2 H Glucose 108 H Uric Acid 8.2 H Phosphorus 5.4 H Transferrin % Sat Urine Protein Urine Occult Blood Ur Leukocyte Esterase Urine RBC Urine WBC Urine Bacteria Meds: Medications Acetaminophen (Tylenol) 650 mg PO Q4-6HP PRN PRN Reason: PAIN/FEVER > 101 Last Admin: 07/20/19 00:15 Dose: 650 mg Documented by: Dextrose (Dextrose 50%) 0 ml IV UD PRN PRN Reason: Hypoglycemia Diagnostic Test (Pha) (Accu-Chek) 1 each FS ACHS [facility] Last Admin: 07/20/19 07:42 Dose: 1 each Documented by: Docusate Sodium (Colace) 100 mg PO BID [facility] Last Admin: 07/19/19 20:45 Dose: Not Given Documented by: Enoxaparin Sodium (Lovenox) 80 mg SQ DAILY [facility] Last Admin: 07/19/19 08:29 Dose: 80 mg Documented by: Famotidine (Pepcid) 20 mg PO [facility] Last Admin: 07/19/19 20:44 Dose: 20 mg Documented by: Glucose (Insta-Glucose) 15 gm PO PRN PRN PRN Reason: Hypoglycemia Magnesium Sulfate (Magnesium Sulfate) 2 gm in 50 mls @ 50 mls/hr IV UD PRN PRN Reason: MG = or < 1.7 Acetaminophen (Ofirmev) 1,000 mg in 100 mls @ 200 mls/hr IV Q6HP PRN PRN Reason: PAIN/FEVER > 101 Sodium Chloride (Sodium Chloride 0.9%) 250 mls @ 0 mls/hr IV BOLUS PRN PRN Reason: BP < 100 systolic Insulin Human Lispro (Humalog) 0 unit SQ [facility]; Protocol Last Admin: 07/20/19 07:51 Dose: 1 units Documented by: Iron Carb/Multivit/[place]/Folic Acid (Multivitamin W/Minerals) 1 tab PO DAILY [facility] Last Admin: 07/19/19 08:22 Dose: 1 tab Documented by: Magnesium Hydroxide (Milk Of Magnesia) 30 ml PO HSP PRN PRN Reason: Constipation Melatonin (Melatonin 3mg Tablet) 3 mg PO HSP PRN PRN Reason: Insomnia Last Admin: 07/18/19 21:32 Dose: 3 mg Documented by: Ondansetron HCl (Zofran) 4 mg IV Q4-6HP PRN PRN Reason: Nausea And Vomiting Last Admin: 07/20/19 07:52 Dose: 4 mg Documented by: Potassium Chloride (Klor-Con) 40 meq PO DAILYP PRN PRN Reason: K+ < 3.5 Senna/Docusate Sodium (Senna Plus Tablet) 1 tab PO [facility] Last Admin: 07/19/19 20:45 Dose: Not Given Documented by: Sodium Chloride (Saline Flush) 10 ml IV Q8 [facility] Last Admin: 07/20/19 04:55 Dose: 10 ml Documented by: Verapamil HCl (Calan) 80 mg PO TID [facility] Last Admin: 07/19/19 20:44 Dose: 80 mg Documented by: Warfarin Sodium (Coumadin Per Pharmacy) 1 order PO UD [facility] Medical - PN: A/P - Time Spent With Patient Total time spent is greater than 50% in coordination of care (as documented) at patient's floor/unit and/or counseling patient: - Narrative A/P Narrative: A: *AFib w/RVR: unclear if new onset or paroxysmal. Possibly secondary to suboptimally controlled hypertension/MS -rate 70's-80's -Echo EF 65% with mod MS, LAE, mod TR, diastolic dysfxn -Discussed options for oral anticoagulants for stroke ppx. Started on Coumadin based on Chads vasc score. -Mag ok, TSH wnl *Pulm HTN, mod: *h/o VT post-op 2016 @[facility]: *KANDY on CKD III likely (?baseline Cr): IMproved -renal u/s no acute path *Atelectasis: improved *Acute cystitis: *DM II: *HTN: home ARB/verapamil/norvasc *GERD: continue PPI *Obese: *Dementia, mild: Plan: -Rate control on home verapamil but changed to immediate release -Neprhology following -hold ARB for KANDY, norvasc has not been restarted yet -IS -basal and SSI -CM for placement needs -ppx: lovenox qd adjusted for renal with warfarin bridge per pharmacy DNR
[2019-07-20] MEDS: ENOXAPARIN 80 MG/0.8 ML SYRINGE SQ SCH (09:21)
[2019-07-20] MEDS: VERAPAMIL HCL 80 MG TABLET PO SCH ×3 (09:22→20:45)
[2019-07-20] MEDS: MULTIVIT,THER IRON,CA,FA & MIN 1 TABLET PO SCH (09:22)
[2019-07-20] MEDS: DOCUSATE SODIUM 100 MG CAPSULE PO SCH ×2 (09:23→20:50)
--- NOTE | 2019-07-20 12:53 | Discharge Summary ---
Medical - DS: Prov Patient information: Note initiated : 07/20/19 at 12:51 pm Service Date, if different from initiated Date: [] Patient: Candy Sierra 84 y/o F admitted on 07/16/19 for irregular heart rate, difficulty breathing. Chief Complaint: [] Date of admission: 07/16/19 18:56 Discharge date: 07/21/19 Primary care physician: Nasra Lacy Consults: 07/16/19 Consult to Physician [CONS] Stat Comment: Consulting Provider: Adrian Montes Reason For Exam: Physician to Consult 07/18/19 09:48 Consult to Physician [CONS] Routine Comment: KANDY Consulting Provider: Cheryl Multani Reason For Exam: Physician to Consult Medical - DS: Meds - Discharge Medications Prescriptions: Enoxaparin [Lovenox] 80 mg SQ DAILY #4 syringe Ondansetron [Zofran ODT] 4 mg SL Q4-6HP PRN #30 tablet PRN Reason: Nausea Verapamil HCl [Calan] 80 mg PO TID #90 tab Warfarin [Coumadin] 5 mg PO DAILY #20 tab Active and Home Medications: Home Medications glipizide 10 mg tablet 10 mg PO BID 01/16/18 [History Confirmed 07/17/19 Last Taken Unknown] losartan 100 mg tablet 100 mg PO QDAY 01/16/18 [History Confirmed 07/17/19 Last Taken Unknown] verapamil ER 360 mg 24 hr capsule,extended release 360 mg PO QDAY 01/16/18 [History Confirmed 07/17/19 Last Taken Unknown] vit B complex-folic acid 1 tab PO QDAY 01/16/18 [History Confirmed 07/19/19 Last Taken Unknown] Aspirin [Adult Low Dose Aspirin EC] 81 mg PO MOWEFR 07/16/19 [History Confirmed 07/19/19 Last Taken Unknown] B-Complex with Vit C Caplet 1 tab PO DAILY 07/16/19 [History Confirmed 07/16/19 Last Taken Unknown] Baby Vitamin D3 400 units PO DAILY 07/16/19 [History Confirmed 07/16/19 Last Taken Unknown] Citracal + D Maximum Caplet 1 tab PO DAILY 07/16/19 [History Confirmed 07/16/19 Last Taken Unknown] Lantus Solostar 15 units SQ DAILY 07/16/19 [History Confirmed 07/16/19 Last Taken Unknown] Latanoprost 0.005% Eye Drop 1 gtt OU DAILY 07/16/19 [History Confirmed 07/16/19 Last Taken Unknown] Omeprazole [PriLOSEC] 20 mg PO ACB 07/16/19 [History Confirmed 07/16/19 Last Taken Unknown] Timolol 0.5% Ophth Drops 1 gtt OU BID 07/16/19 [History Confirmed 07/16/19 Last Taken Unknown] amLODIPine [Norvasc] 5 mg PO DAILY 07/16/19 [History Confirmed 07/16/19 Last Taken Unknown] Home Medications glipizide 10 mg tablet 10 mg PO BID 01/16/18 [History Confirmed 07/17/19 Last Taken Unknown] vit B complex-folic acid 1 tab PO QDAY 01/16/18 [History Confirmed 07/19/19 Last Taken Unknown] Aspirin [Adult Low Dose Aspirin EC] 81 mg PO MOWEFR 07/16/19 [History Confirmed 07/19/19 Last Taken Unknown] B-Complex with Vit C Caplet 1 tab PO DAILY 07/16/19 [History Confirmed 07/16/19 Last Taken Unknown] Baby Vitamin D3 400 units PO DAILY 07/16/19 [History Confirmed 07/16/19 Last Taken Unknown] Citracal + D Maximum Caplet 1 tab PO DAILY 07/16/19 [History Confirmed 07/16/19 Last Taken Unknown] Lantus Solostar 15 units SQ DAILY 07/16/19 [History Confirmed 07/16/19 Last [place] en Unknown] Latanoprost 0.005% Eye Drop 1 gtt OU DAILY 07/16/19 [History Confirmed 07/16/19 Last Taken Unknown] Omeprazole [Prilosec] 20 mg PO ACB 07/16/19 [History Confirmed 07/16/19 Last Taken Unknown] Timolol 0.5% Ophth Drops 1 gtt OU BID 07/16/19 [History Confirmed 07/16/19 Last Taken Unknown] amLODIPine [Norvasc] 5 mg PO DAILY 07/16/19 [History Confirmed 07/16/19 Last Taken Unknown] Enoxaparin [Lovenox] 80 mg SQ DAILY #2 syringe 07/20/19 [Rx Last Taken Unknown] Verapamil HCl [Calan] 80 mg PO TID #90 tab 07/20/19 [Rx Last Taken Unknown] Warfarin [Coumadin] 5 mg PO DAILY #20 tab 07/20/19 [Rx Last Taken Unknown] Medical - DS: Hosp Hospital Course: Ms. Sierra is a 84 year old F with known history of diabetes/hypertension who presents to the ER with over 24-hour onset of chest palpitations/shortness of breath. Patient lives fairly independently at [place]. She went to the library where she started experiencing pounding sensation along with shortness of breath. She was helped by the tape librarian to her home. She could not get a hold of her kids in the evening and remained at home all night trying to work with the symptoms. This morning she woke up with similar symptoms and subsequently came to the ER for evaluation. She denies associated chest pain but felt like pressure. She denies associated diaphoresis lightheadedness or dizziness. Initial work-up was consistent with A. fib RVR with heart rate around 170. Patient was started on diltiazem with resultant heart rate stabilizing around 110. Chest imaging reveals bilateral basilar pneumonia, pyuria on UA. Subsequently hospitalist service was consulted. At the time of evaluation patient is alert and oriented. She was able to answer most questions. She was able to endorse history as above. Recently was on a vacation with her son at [facility]. She denies exposure to sick contact. She further denies [id number] cough suppressant or NSAIDs. She denies lower extremity pain swelling or prolonged immobilization or history of clotting or bleeding disorder. 07/17-patient doing well. No overnight events. Intermittent A. fib RVR currently on diltiazem drip. On review patient is not on verapamil as per pharmacy. She is currently only on losartan. Start verapamil at home dose titrate diltiazem drip. Continue full dose anticoagulation on Lovenox. Await echocardiogram. Patient will be a candidate for novel oral anticoagulants if nonvalvular A. fib. Creatinine 1.6. Pyuria. Check urine culture. Consider antibiotic if fever or flank pain noted. Patient may be a candidate for cardioversion if unable to convert spontaneously in the next 30 days due to symptomatic A. fib 07/18-patient doing well on p.o. verapamil. Echo 65% EF with mild stenosis and regurgitation. Started on Coumadin for CVA prophylaxis after discussion of risk and benefits with patient. Diuresing well. Improved shortness of breath. Heart rate study around 90s. Creatinine bump noted from a baseline of and 2007-2.2. Nephrology consulted. No nephrotoxins on medication list. Zosyn discontinued for concerns of interstitial nephritis. 07/19 Had some leg cramping overnight that kept her up, not tolerate YO hose. Otherwise no complaints. No overnight events. Creatinine improving. Low FENa and urine sodium, was given 500 of NS yesterday. Heart rates have been 60s to 100 overnight. 07/20 Unable to tolerate YO hose but tolerating SCDs. Slept better. Rate better. INR still subtherapeutic on Lovenox bridge. 07/21 He needs to improve. No nausea this morning tolerated breakfast. Heart rates controlled. Renal function improved. Discussed case with her son Patricio as well. Patient will follow up with primary care cardiology and nephrology. For discharge Discharge diagnosis: A. fib RVR pulmonary hypertension acute kidney injury atelectasis Secondary discharge diagnosis: Diabetes hypertension GERD obesity dementia - Time Spent with Patient Total time spent providing and/or coordinating discharge services: Greater than 30 minutes Medical - DS: Exam - Constitutional Vitals: Vital Signs Temp Pulse Pulse Resp BP BP Pulse Ox 07/20/19 08:00 97.6 F 20 132/70 93 07/20/19 03:07 97.8 F 88 20 130/64 96 07/19/19 23:42 98.0 F 75 20 126/66 93 07/19/19 19:36 97.8 F 71 20 149/72 95 07/19/19 16:19 97.4 F 70 20 136/71 97 Intake and Output 07/19/19 07/20/19 07/20/19 21:59 05:59 13:59 Intake Total 200 240 Output Total 125 300 275 Balance -125 -100 -35 Intake: Oral 200 240 Output: Void Amount 125 300 200 Emesis 75 Other: Meal Dinner Breakfast Percent of Meal Consumed 25% 75% Urine Appearance Clear Urine Color Bright Yellow Stool Size Small Small Stool Color Brown Brown Stool Consistency Soft Soft # Voids 1 # Bowel Movements 1 1 Weight 91.852 kg Medical - DS: Data Labs on day of discharge: Labs from last 24 hours 07/20/19 07/20/19 07/20/19 04:02 04:02 04:02 Absolute Retic 2.5 H PT INR Sodium 135 Potassium 4.8 Chloride 102 Carbon Dioxide 17 L Anion Gap 16.0 BUN 41 H Creatinine 1.6 H GFR Calculation 30 Glucose 167 H Calcium 8.6 Iron 37 TIBC 285 Unsat Iron Binding 248 Transferrin % Sat 12 L 07/20/19 04:02 Absolute Retic PT 15.9 H INR 1.3 H Sodium Potassium Chloride Carbon Dioxide Anion Gap BUN Creatinine GFR Calculation Glucose Calcium Iron TIBC Unsat Iron Binding Transferrin % Sat Medical - DS: A/P - Patient/Caregiver Discharge Instructions Activity: increase activity as tolerated Diet: Consistent Carbohydrate Additional Instructions: Referral to see cardiology in 5 to 10 days Prescriptions: Enoxaparin [Lovenox] 80 mg SQ DAILY #4 syringe Verapamil HCl [Calan] 80 mg PO TID #90 tab Warfarin [Coumadin] 5 mg PO DAILY #20 tab Other Amb Orders: Prothrombin Time INR Time Frame: 2 Days, Location: None Selected - Follow up Plan Follow up with: Nasra Lacy ARNP [Primary Care Provider] - Masoud Asencio MD [Physician] - Disposition: Home Health Service Prognosis: Fair Rehab Potential: Fair Overall status at discharge: patient is progressing back to baseline
[2019-07-20] MEDS ORDERED: ACETAMINOPHEN 325 MG TABLET PO PRN (13:12)
--- NOTE | 2019-07-20 13:22 | Nephrology Progress Note ---
Subjective Patient information: Note initiated : 07/20/19 at 1:16 pm Service Date, if different from initiated Date: [] Patient: Candy Sierra 84 y/o F admitted on 07/16/19 for irregular heart rate, difficulty breathing. Chief Complaint: [Fast heart beat and SOB] Principal diagnosis: A fib with RVR and Acute Prerenal azotemia on CKD 3 Interval history: 1. Still in a fib but rate controlled 2. BP acceptable on short acting Verapamil and CCB 3. Up and ambulatory and in chair 4. GFR stable but above baseline - will need outpatient follow-up 5. Will need walking O2 sats and HR before D/C 6. Warfarin loading with plans for cardioversion on anticoagulated for appropriate oumou 7. No amiodarone at this oumou. Pertinent ROS: Nothing new Additional PMFSH (Level 3 Only): Nothing to add Objective - Vital Signs Vital signs: Vital Signs Temp Pulse Pulse Resp BP BP Pulse Ox 07/20/19 12:00 97.4 F 20 136/75 96 07/20/19 08:00 97.6 F 20 132/70 93 07/20/19 03:07 97.8 F 88 20 130/64 96 07/19/19 23:42 98.0 F 75 20 126/66 93 07/19/19 19:36 97.8 F 71 20 149/72 95 07/19/19 16:19 97.4 F 70 20 136/71 97 Intake and Output 07/19/19 07/20/19 07/20/19 21:59 05:59 13:59 Intake Total 200 240 Output Total 125 300 275 Balance -125 -100 -35 Intake: Oral 200 240 Output: Void Amount 125 300 200 Emesis 75 Other: Meal Dinner Breakfast Percent of Meal Consumed 25% 75% Urine Appearance Clear Urine Color Bright Yellow Stool Size Small Small Stool Color Brown Brown Stool Consistency Soft Soft # Voids 1 # Bowel Movements 1 1 Weight 202 lb 8 oz Intake & Output: Intake & Output 07/19/19 07/20/19 07/20/19 21:59 05:59 13:59 Intake Total 200 240 Output Total 125 300 275 Balance -125 -100 -35 Weight 202 lb 8 oz Intake: Oral 200 240 Output: Void Amount 125 300 200 Emesis 75 Other: Meal Dinner Breakfast Percent of Meal Consumed 25% 75% Urine Appearance Clear Urine Color Bright Yellow Stool Size Small Small Stool Color Brown Brown Stool Consistency Soft Soft # Voids 1 # Bowel Movements 1 1 - General Appearance General appearance: well-developed, well-nourished, appears started age EENT: ATNC, PERRL Neck: no JVD, no thyromegaly, no carotid bruit, supple Respiratory: kyphosis Cardiology: no murmurs, rub, no gallops, no edema, edema, regular rate, irregular rhythm (Irreg irreg), normal S1, normal S2 Gastrointestinal: normoactive bowel sounds, no tenderness, no guarding, no masses Integumentary: no rash, warm and dry Neurologic: no focal deficit, no asterixis, alert and oriented x3, CN 3-12 intact Musculoskeletal: no deformities, no erythema, no cyanosis, no clubbing Psychiatric: mood/affect appropriate - Lab 07/19/19 04:08 07/20/19 04:02 Most recent lab results Calcium 8.6 mg/dl (8.6-10.4) 07/20/19 04:02 Phosphorus 3.9 mg/dL (2.7-4.5) 07/19/19 04:08 Magnesium 2.0 mg/dL (1.6-2.5) 07/19/19 04:08 - Imaging Kidney/bladder ultrasound: image reviewed Assessment and Plan (1) Acute renal failure superimposed on stage 3 chronic kidney disease Improved acute renal failure. Still tachycardia and BP less than baseline suggests she could use some IVF. Once BP improves a little, would use SHORT ACTING VERAPAMIL for rate control and a BP Rx that would not interfer with any bronchodilators she may need.Expect reture of SCr to 1.2 mg/dl soon. Status: Acute Priority: High Comment: Acute prerenal azotemia Qualifiers: Acute renal failure type: unspecified Qualified Code(s): N17.9 - Acute kidney failure, unspecified; N18.3 - Chronic kidney disease, stage 3 (moderate) (2) Atrial fibrillation with RVR Status: Acute
[2019-07-20] MEDS ORDERED: WARFARIN 5 MG TABLET PO ONE (14:00)
[2019-07-20] MEDS: ACETAMINOPHEN 500 MG TABLET PO SCH ×2 (14:14→21:21)
[2019-07-20] MEDS: FAMOTIDINE 20 MG TABLET PO SCH (20:44)
[2019-07-20] MEDS: SENNOSIDES/DOCUSATE SODIUM 1 TAB TABLET PO SCH (20:50)
[2019-07-21] MEDS: MELATONIN 3 MG TABLET PO PRN (00:05)
[2019-07-21] MEDS: 0.9 % SODIUM CHLORIDE 10 ML SYRINGE IV SCH ×2 (05:49→14:22)
[2019-07-21] MEDS: ACETAMINOPHEN 500 MG TABLET PO SCH ×2 (05:49→14:22)
[2019-07-21 06:54] LABS: Blood Urea Nitrogen 31 mg/dl (8-23); Calcium 8.8 mg/dl (8.6-10.4); Carbon Dioxide 19 mmol/L (22-30); Chloride 107 mmol/L (96-108); Glomerular Filtration Rate 38; Glucose 130 mg/dL (70-105)
[2019-07-21 07:03] LABS: INR 1.5 (0.9-1.1)
[2019-07-21] MEDS: DOCUSATE SODIUM 100 MG CAPSULE PO SCH (08:32)
[2019-07-21] MEDS: INSULIN LISPRO 1 UNIT/0.01 ML UNIT SQ SCH ×2 (08:32→14:19)
[2019-07-21] MEDS: VERAPAMIL HCL 80 MG TABLET PO SCH (08:32)
[2019-07-21] MEDS: ENOXAPARIN 80 MG/0.8 ML SYRINGE SQ SCH (08:32)
[2019-07-21] MEDS: MULTIVIT,THER IRON,CA,FA & MIN 1 TABLET PO SCH (08:33)
[2019-07-21] MEDS ORDERED: WARFARIN 5 MG TABLET PO ONE (14:00)
== END 2019-07-21 15:28 | disposition home health service (06) | DRG 308 ==
LOC: ED 15:03 → ICU 18:56
PROVIDERS: ADMIT Internal Medicine; ATTEND Internal Medicine